=== PATIENT | male | born 1945 | race African-American/Black ===

== ENCOUNTER 2021-10-26 16:35 | Inpatient (IN) | payer MEDICARE, OTHER ==
[2021-10-27] MEDS ORDERED: DEXTROSE 50% IN WATER (25GM) 50 ML SYRINGE IV PRN (13:06)
[2021-10-27] MEDS ORDERED: ONDANSETRON 4 MG ODT TAB PO PRN (16:00)
[2021-10-27] MEDS: INSULIN LISPRO 100 UNIT/ML SUB-Q SCH ×2 (17:24→21:41)
[2021-10-27] MEDS: metFORMIN 500 MG TAB PO SCH (17:43)
[2021-10-27] MEDS: oxyCODONE 5 MG TAB PO PRN (21:41)
[2021-10-27] MEDS: levETIRAcetam 500 MG TAB PO SCH (21:41)
[2021-10-27] MEDS: GABAPENTIN 300 MG CAP PO SCH (21:41)
[2021-10-27] MEDS: DIVALPROEX ER 500 MG TAB PO SCH (21:45)
[2021-10-27] MEDS ORDERED: GABAPENTIN 300 MG CAP PO SCH (22:00)
[2021-10-28 04:31] LABS: Hematocrit 25.5 % (35.5-45.6); Hemoglobin 8.5 gm/dl (11.8-15.2); Mean Corpuscular HGB Conc 33 % (32-34); Mean Corpuscular Volume 88 fl (84-94); Platelet Count 659 K/mm3 (140-440); Red Cell Distribution Width 19.4 % (13.2-15.2)
[2021-10-28 04:52] LABS: Alanine Aminotransferase 7 units/L (7-56); Blood Urea Nitrogen 8 mg/dL (9-20); Calcium 8.4 mg/dL (8.4-10.2); Hemolysis Index 5
[2021-10-28 04:53] LABS: BUN/Creatinine Ratio 16
[2021-10-28 05:20] LABS: Basophils % (Manual) 0 % (0.0-1.8); Platelet Estimate Consistent w Auto; Total Cells Counted 100
[2021-10-28] MEDS: LEVOTHYROXINE 50 MCG TAB PO SCH (05:44)
--- NOTE | 2021-10-28 08:17 | History and Physical Report ---
History of Present Illness Date: 10/28/21 Date of admission: 10/27/21 16:16 Chief Complaint: Fall with bilateral proximal humerus fractures History of present illness: 75-year-old male who was on a cruise and ended up falling in the shower early on. After the cruise he ended up falling again and having seizure activity. Was taken to [facility] and found to have bilateral proximal humerus fractures with posterior dislocation. He was started on AEDs and neurology consult was obtained. He was transferred to [facility] on 10/18 and underwent a right total shoulder arthroplasty and a left ORIF. Patient was discharged from the outside hospital and after a few days of waiting for insurance approval was admitted for acute inpatient rehabilitation. Patient remains on DVT prophylaxis with Lovenox. Per Ortho his right upper extremity m ay be in a simple sling, left upper extremity is in external rotation sling. Nonweightbearing bilaterally and slight range of motion (pendulums) okay for axillary hygiene only. Patient has a follow-up appointment tomorrow with a local orthopedic surgeon. Bandages have been removed per outside hospital according to the patient. After the patient was medically stabilized they were transferred for further rehabilitation. All available medical records have been reviewed. Plan of care was discussed with patient. Past History Past Medical History: cancer (Prostate), diabetes, hypothyroidism Past Surgical History: Other (Prostatectomy and radiation) Social history: , lives with family. denies: smoking, alcohol abuse Family history: no significant family history Medications and Allergies Allergies Allergy/AdvReac Type Severity Reaction Status Date / Time No Known Allergies Allergy Unverified 10/27/21 12:21 Home Medications Medication Instructions Recorded Confirmed Last Taken Type Aspirin [Aspirin BABY CHEW TAB] 81 mg PO DAILY 10/27/21 10/27/21 10/26/[address] [Depakote Dr] 500 mg PO BID 10/27/21 10/27/21 10/27/21 History Docusate Sodium [Colace CAP] 100 mg PO DAILY 10/27/21 10/27/21 10/27/21 History Gabapentin 600 mg PO QHS 10/27/21 10/27/21 10/26/21 History Ibuprofen [Motrin Ib] 600 mg PO DAILY PRN 10/27/21 10/27/21 10/26/21 History Levothyroxine [Synthroid] 50 mcg PO DAILY 10/27/21 10/27/21 10/27/21 History Omeprazole 20 mg PO DAILY 10/27/21 10/27/21 10/27/21 History Zyrtec 10mg tab 10 mg PO DAILY 10/27/21 10/27/21 10/27/21 History levETIRAcetam [Keppra TAB] 1,000 mg PO BID 10/27/21 10/27/21 10/27/21 History metFORMIN [Glucophage] 500 mg PO QHS 10/27/21 10/27/21 10/26/21 History oxyCODONE [roxiCODONE] 5 mg PO Q6HR PRN 10/27/21 10/27/21 10/27/21 History Active Meds: Active Medications Acetaminophen (Acetaminophen 325 Mg Tab) 650 mg PO Q6H PRN PRN Reason: Pain MILD(1-3)/Fever >100.5/GONZALEZ Aspirin (Aspirin Ec 325 Mg Tab) 325 mg PO QDAY CAROLYN Cetirizine HCl (Cetirizine 10 Mg Tab) 10 mg PO QDAY [facility] Dextrose (Dextrose 50% In Water (25gm) 50 Ml Syringe) 50 ml IV Q30MIN PRN; Protocol PRN Reason: Hypoglycemia Divalproex Sodium (Divalproex Er 500 Mg Tab) 500 mg PO BID [facility] Last Admin: 10/27/21 21:45 Dose: 500 mg Docusate Sodium (Docusate Sodium 100 Mg Cap) 100 mg PO DAILY [facility] Enoxaparin Sodium (Enoxaparin 40 Mg/0.4 Ml Inj) 40 mg SUB-Q QDAY [facility] Gabapentin (Gabapentin 300 Mg Cap) 600 mg PO HS [facility] Last Admin: 10/27/21 21:41 Dose: 600 mg Insulin Human Lispro (Insulin Lispro 100 Unit/Ml) 0 unit SUB-Q ACHS [facility]; Protocol Last Admin: 10/27/21 21:41 Dose: Not Given Levetiracetam (Levetiracetam 500 Mg Tab) 1,000 mg PO BID [facility] Last Admin: 10/27/21 21:41 Dose: 1,000 mg Levothyroxine Sodium (Levothyroxine 50 Mcg Tab) 50 mcg PO DAILY@0600 [facility] Last Admin: 10/28/21 05:44 Dose: 50 mcg Metformin HCl (Metformin 500 Mg Tab) 500 mg PO QPM [facility] Last Admin: 10/27/21 17:43 Dose: 500 mg Ondansetron HCl (Ondansetron 4 Mg Odt Tab) 4 mg PO Q8H PRN PRN Reason: Nausea And Vomiting Oxycodone HCl (Oxycodone 5 Mg Tab) 5 mg PO Q6H PRN PRN Reason: Pain, Moderate (4-6) Last Admin: 10/27/21 21:41 Dose: 5 mg Pantoprazole Sodium (Pantoprazole 20 Mg Tab) 20 mg PO QDAC [facility] Polyethylene Glycol (Polyethylene Glycol 3350 17 Gm Powder) 17 gm PO QDAY PRN PRN Reason: Constipation Review of Systems All systems: negative (ROS negative for 10 systems except as noted below with pertinent positives and negatives.) Constitutional: no fever, no chills Ears, nose, mouth and throat: no decreased hearing, no vertigo Cardiovascular: no chest pain, no edema Respiratory: no cough, no shortness of breath Gastrointestinal: no abdominal pain, no nausea, no vomiting, no diarrhea, no constipation Musculoskeletal: shooting arm pain, fractures, no shooting leg pain Integumentary: wounds (Clean dry and intact), no rash Neurological: seizures, no weakness Psychiatric: no memory loss, no disorientation Endocrine: high blood sugars Exam - Exam Narrative exam: MUSCULOSKELETAL SPECIALTY EXAM CONSTITUTIONAL: Well developed, well nourished, appropriately groomed LYMPHATIC: No appreciable abnormalities palpable in neck RESPIRATORY: Clear to auscultation bilaterally, no increased work of breathing CARDIOVASCULAR: Regular Rate/ Rhythm, no swelling, edema or tenderness in BUE or BLE. Pulses palpable in all extremities. All extremities warm. GI: + bowel sounds, soft, NTTP, nondistended. INTEGUMENTARY: Surgical incisions clean dry and intact on bilateral shoulders, bruising noted. Otherwise normal, no lesion, rash, masses or bruising noted in extremities. MUSCULOSKELETAL: BUE and BLE normal without defect, crepitus, subluxation, effusion, arthritic changes or TTP. BUE unable to test fully due to restrictions, manager harbor strength intact able to move wrist and elbows BLE 4+/5 good ROM, with normal tone NEURO: CN 2-12 grossly intact. Sensation intact in all extremities. Reflexes 2+ bilaterally at patella, did not test upper extremity due to surgical site. No clonus at ankles. Gross coordination intact in BUE within limitations of range of motion restrictions. No tremor noted in 4 extremities. POSTURE and GAIT: Sitting posture good. Balance and gait deferred until seen with therapy. PSYCH: Alert, oriented x3, affect appears normal. Insight appears intact. - Constitutional Vitals: Vital Signs - 12hr 10/27/21 10/27/21 10/27/21 21:30 22:34 23:39 Temperature 97.5 F L 97.8 F Pulse Rate 70 67 Respiratory 15 16 Rate Blood Pressure 126/58 131/61 O2 Sat by Pulse 99 99 99 Oximetry 10/28/21 03:22 Temperature 97.4 F L Pulse Rate 66 Respiratory 15 Rate Blood Pressure 139/65 O2 Sat by Pulse 100 Oximetry - Labs CBC & Chem 7: 10/28/21 03:25 10/28/21 03:25 Labs: Laboratory Results - last 72 hr 10/27/21 10/27/21 10/28/21 16:42 21:28 03:25 WBC 6.9 RBC 2.90 L Hgb 8.5 L Hct 25.5 L MCV 88 MCH 29 MCHC 33 RDW 19.4 H Plt Count 659 H [place] % (Auto) Glass Forming Crew Member Add Manual Diff Complete Total Counted 100 Seg Neuts % (Manual) 51.0 Band Neutrophils % 0 Lymphocytes % (Manual) 29.0 Reactive Lymphs % (Man) 0 Monocytes % (Manual) 13.0 H Eosinophils % (Manual) 7.0 H Basophils % (Manual) 0 Metamyelocytes % 0 Myelocytes % 0 Promyelocytes % 0 Blast Cells % 0 Nucleated RBC % Not Reportable Seg Neutrophils # Man 3.5 Band Neutrophils # 0.0 Lymphocytes # (Manual) 2.0 Abs React Lymphs (Man) 0.0 Monocytes # (Manual) 0.9 H Eosinophils # (Manual) 0.5 H Basophils # (Manual) 0.0 Metamyelocytes # 0.0 Myelocytes # 0.0 Promyelocytes # 0.0 Blast Cells # 0.0 WBC Morphology Not Reportable Hypersegmented Neuts Not Reportable Hyposegmented Neuts Not Reportable Hypogranular Neuts Not Reportable Smudge Cells Not Reportable Toxic Granulation Not Reportable Toxic Vacuolation Not Reportable Dohle Bodies Not Reportable Pelger-Huet Anomaly Not Reportable Allison Rods Not Reportable Platelet Estimate Consistent w auto Clumped Platelets Not Reportable Plt Clumps, EDTA Not Reportable Large Platelets Not Reportable Giant Platelets Not Reportable Platelet Satelliting Not Reportable Plt Morphology Comment Not Reportable RBC Morphology Not Reportable Dimorphic RBCs Not Reportable Polychromasia Not Reportable Hypochromasia Not Reportable Poikilocytosis Not Reportable Anisocytosis Not Reportable Microcytosis Not Reportable Macrocytosis Not Reportable Spherocytes Not Reportable Pappenheimer Bodies Not Reportable Sickle Cells Not Reportable Target Cells Not Reportable Tear Drop Cells Not Reportable Ovalocytes Not Reportable Helmet Cells Not Reportable Tolliver-Haines Bodies Not Reportable [place] Rings Not Reportable [place] Cells Not Reportable Bite Cells Not Reportable Crenated Cell Not Reportable Elliptocytes Not Reportable Acanthocytes (Spur) Not Reportable Rouleaux Not Reportable Hemoglobin C Crystals Not Reportable Schistocytes Not Reportable Malaria parasites Not Reportable Andrei Bodies Not Reportable Hem Pathologist Commnt No Sodium Potassium Chloride Carbon Dioxide Anion Gap BUN Creatinine Estimated GFR BUN/Creatinine Ratio Glucose POC Glucose 139 H 149 H Calcium Total Bilirubin AST ALT Alkaline Phosphatase Total Protein Albumin Albumin/Globulin Ratio 10/28/21 10/28/21 03:25 07:58 WBC RBC Hgb Hct MCV MCH MCHC RDW Plt Count [place] % (Auto) Add Manual Diff Total Counted Seg Neuts % (Manual) Band Neutrophils % Lymphocytes % (Manual) Reactive Lymphs % (Man) Monocytes % (Manual) Eosinophils % (Manual) Basophils % (Manual) Metamyelocytes % Myelocytes % Promyelocytes % Blast Cells % Nucleated RBC % Seg Neutrophils # Man Band Neutrophils # Lymphocytes # (Manual) Abs React Lymphs (Man) Monocytes # (Manual) Eosinophils # (Manual) Basophils # (Manual) Metamyelocytes # Myelocytes # Promyelocytes # Blast Cells # WBC Morphology Hypersegmented Neuts Hyposegmented Neuts Hypogranular Neuts Smudge Cells Toxic Granulation Toxic Vacuolation Dohle Bodies Pelger-Huet Anomaly Allison Rods Platelet Estimate Clumped Platelets Plt Clumps, EDTA Large Platelets Giant Platelets Platelet Satelliting Plt Morphology Comment RBC Morphology Dimorphic RBCs Polychromasia Hypochromasia Poikilocytosis Anisocytosis Microcytosis Macrocytosis Spherocytes Pappenheimer Bodies Sickle Cells Target Cells Tear Drop Cells Ovalocytes Helmet Cells Tolliver-Haines Bodies [place] Rings Mel[place] Cells Bite Cells Crenated Cell Elliptocytes Acanthocytes (Spur) Rouleaux Hemoglobin C Crystals Schistocytes Malaria parasites Andrei Bodies Hem Pathologist Commnt Sodium 142 Potassium 4.5 Chloride 108.2 H Carbon Dioxide 26 Anion Gap 12 BUN 8 L Creatinine 0.5 L Estimated GFR > 60 BUN/Creatinine Ratio 16 Glucose 102 H POC Glucose 81 Calcium 8.4 Total Bilirubin 0.30 AST 13 ALT 7 Alkaline Phosphatase 108 Total Protein 5.5 L Albumin 3.0 L Albumin/Globulin Ratio 1.2 Assessment and Plan Assessment and plan: Patient was assessed and evaluated for Acute Inpatient Rehab Unit. Due to the patients above-mentioned medical complexity, along with decreased functional mobility and self care, this patient continues to require and be appropriate for a comprehensive, multidisciplinary [id number] rehabilitation program. These needs cannot be met in an outpatient or other less intensive setting. The patient would continue to benefit from skilled therapy intervention for at least 3 hours per day, five days a week, with techniques specific to the needs of the patient to improve function, activities of daily living, and reintegration into the community. The patient continues to require: -- OT to improve ROM, self-care, and learn use of adaptive equipment -- PT to improve strength and balance, functional transfers, and ambulation with energy conservation techniques to improve functional mobility -- 24 hour RN to ensure and prevent skin breakdown, promote progressive independence while ensuring safety, ensure education regarding medications, and incorporation of the rehabilitation at the bedside -- 24 hour Commercial Loan Processor to coordinate this interdisciplinary program, and to manage/prevent complications as a result of the patients medical comorbidities. -Plan of care by day 4 -Weekly team conferences With such a program, there is a reasonable certainty that the goals individualized for this patient can be achieved within the specified length of stay. Bilateral proximal humerus fractures: Continue nonweightbearing, no range of motion at shoulders. Follow-up with surgeon. External rotation sling for left upper extremity, right upper extremity simple sling. DVT prophylaxis. Seizures: Continue Depakote and Keppra. Seizure precautions ordered. Patient will need to follow-up with neurology after discharge for further monitoring and adjustment of medication regimen. No driving until cleared by neurology. Diabetes: Continue metformin. Patient very well controlled at home. Will cover with sliding scale insulin. Hypothyroidism: Continue levothyroxine. ADL dysfunction: OT will work on improving ability to perform ADLs (including assistive devices) to increase independence and decrease caregiver burden and improve functional transfers and mobility training. Difficulty walking: PT will work on gait training and proper use of assistive devices and advance as appropriate to use of stairs and outside ambulation on uneven surfaces. Unsteadiness on feet: PT will work on improving static and dynamic sitting and standing balance as well as proper use of assistive devices to decrease risk of falls. Abnormality of gait: PT will work to improve safety and efficiency of gait through neuromotor training and gait training along with instruction on proper use of assistive devices. Muscle weakness: PT & OT will work on strengthening exercises to improve functional strength including mixture of closed and open kinetic chain exercises. Debility: PT & OT will work on improving overall functional status to improve participation with ADLs, mobility and social involvement. Fatigue: PT & OT will work on improving endurance through aerobic exercises and therapeutic activity while monitoring patients tolerance for activity and vital signs as needed. DVT ppx: Lovenox Pain: Continue physical modalities in therapy and pain medications as needed to achieve functional pain control. Sleep: Monitor and address as needed. Bowel: Monitor and address as needed. Appetite: Monitor and address as needed. Discharge planning: Pending therapy progress and care plan meeting. Will continue discussion with therapy team, SW, patient and family. Restrictions/ Precautions: Falls, seizure WB status: FWB Functional Hx: ADLs: Independent Cognition: Independent Mobility: No AD Barriers to Discharge: Decreased mobility and ability to perform self care, balance deficits, weakness Estimated Length of Stay: 710 days Discharge Destination: Home with family POST ADMISSION PHYSICIAN EVALUATION I have examined the patient and find that functional status, medical condition and appropriateness for IRF admission are essentially unchanged from those described in the preadmission screening. Will monitor for worsening wound d ehiscence, wound infection, loosening of hardware, DVT/PE, bowel and bladder complications and complications due to seizures, diabetes and electrolyte abnormalities. Will attempt to avoid occurrence of these issues or treat them if they present themselves.
[2021-10-28] MEDS: INSULIN LISPRO 100 UNIT/ML SUB-Q SCH ×4 (09:10→22:06)
[2021-10-28] MEDS: levETIRAcetam 500 MG TAB PO SCH ×2 (09:11→21:56)
[2021-10-28] MEDS: ASPIRIN EC 325 MG TAB PO SCH (09:11)
[2021-10-28] MEDS: ENOXAPARIN 40 MG/0.4 ML INJ SUB-Q SCH (09:11)
[2021-10-28] MEDS: DOCUSATE SODIUM 100 MG CAP PO SCH (09:11)
[2021-10-28] MEDS: CETIRIZINE 10 MG TAB PO SCH (09:11)
[2021-10-28] MEDS: PANTOPRAZOLE 20 MG TAB PO SCH (09:11)
[2021-10-28] MEDS: oxyCODONE 5 MG TAB PO PRN ×2 (12:57→22:03)
[2021-10-28] MEDS: IBUPROFEN 600 MG TAB PO PRN (15:23)
[2021-10-28] MEDS: DIVALPROEX ER 500 MG TAB PO SCH ×2 (15:23→21:57)
[2021-10-28] MEDS: metFORMIN 500 MG TAB PO SCH (17:43)
[2021-10-28] MEDS: GABAPENTIN 300 MG CAP PO SCH (21:57)
[2021-10-29] MEDS: IBUPROFEN 600 MG TAB PO PRN ×2 (02:16→10:36)
[2021-10-29] MEDS: LEVOTHYROXINE 50 MCG TAB PO SCH (05:29)
--- NOTE | 2021-10-29 07:47 | Progress Note ---
Subjective Date of service: 10/29/21 Principal diagnosis: Fall with bilateral proximal humerus fractures Interval history: 75-year-old male who was on a cruise and ended up falling in the shower early on. After the cruise he ended up falling again and having seizure activity. Was taken to [facility] and found to have bilateral proximal humerus fractures with posterior dislocation. He was started on AEDs and neurology consult was obtained. He was transferred to [facility] on 10/18 and underwent a right total shoulder arthroplasty and a left ORIF. Patient was discharged from the outside hospital and after a few days of waiting for insurance approval was admitted for acute inpatient rehabilitation. Patient remains on DVT prophylaxis with Lovenox. Per Ortho his right upper extremity may be in a simple sling, left upper extremity is in external rotation sling. Nonweightbearing bilaterally and slight range of motion (pendulums) okay for axillary hygiene only. Patient has a follow-up appointment tomorrow with a local orthopedic surgeon. Bandages have been removed per outside hospital according to the patient. After the patient was medically stabilized they were transferred for further rehabilitation. All available medical records have been reviewed. Plan of care was discussed with patient. Interval History: Patient is participating in therapy and making reasonable progress. Taking rest breaks as needed. -BM. Denies palpitations, dyspnea, cough, N/V, weakness. Bilateral proximal humerus fractures: Status post left ORIF and right TSA. José Miguel belkis was scheduled to follow-up with a new orthopedic surgeon since the surgery was performed and [place]. However there are questions concerning approval of insurance for allowing the patient to go with family to an outside/outpatient appointment while the patient is inpatient in the IRU. Sunita y is working on rescheduling appointment. Meanwhile we will order bilateral shoulder x-rays to evaluate the injuries. Patient is not having any acute issues currently. Patient is also requested Ortho consult, did inform him that we do not have a dedicated shoulder specialist in house but will try to arrange for inpatient consult while he is here until he is able to follow-up with his outpatient shoulder specialist. Remains on DVT prophylaxis while in house, weightbearing and range of motion restrictions, and sling. Seizures: Continue medications, no seizure activity appreciated or reported. Continue seizure precaution Diabetes: Very well controlled. Continue metformin. We will stop fingerstick glucose checks and sliding scale as patient is well controlled on current regimen. Can perform glucose checks as needed if there are any acute changes Constipation: Medications available both scheduled and as needed. Continue to monitor and adjust as necessary ADL mobility deficits: Patient is working with therapy and making progress. Continued to provide therapeutic interventions to give the patient skills and comfort with performing ADLs and mobility in a safe manner without putting upper extremities at risk. All records, vitals, labs and medications were reviewed. No other issues per patient, nursing or therapy. Objective - Exam Narrative Exam: MUSCULOSKELETAL SPECIALTY EXAM CONSTITUTIONAL: Well developed, well nourished, appropriately groomed RESPIRATORY: Clear to auscultation bilaterally, no increased work of breathing CARDIOVASCULAR: Regular Rate/ Rhythm, no swelling, edema or tenderness in BUE or BLE. Pulses palpable in all extremities. All extremities warm. GI: + bowel sounds, soft, NTTP, nondistended. INTEGUMENTARY: Surgical incisions clean dry and intact on bilateral shoulders, bruising noted. Otherwise normal, no lesion, rash, masses or bruising noted in extremities. MUSCULOSKELETAL: BUE and BLE normal without defect, crepitus, subluxation, effusion, arthritic changes or TTP (appropriate TTP to bilateral shoulders). BUE unable to test fully due to restrictions, machinery engineer strength intact able to move wrist and elbows BLE 4+/5 good ROM, with normal tone NEURO: CN 2-12 grossly intact. Sensation intact in all extremities. No tremor noted in 4 extremities. POSTURE and GAIT: Sitting posture good. Balance and gait deferred until seen with therapy. PSYCH: Alert, oriented x3, affect appears normal. Insight appears intact. - Constitutional Vitals: Vital Signs - 12hr 10/28/21 10/28/21 10/28/21 20:00 20:02 22:03 Temperature 97.7 F Pulse Rate 73 Respiratory 16 17 Rate Blood Pressure 166/71 Blood Pressure [Right] O2 Sat by Pulse 97 99 Oximetry 10/28/21 10/29/21 23:05 02:16 Temperature Pulse Rate Respiratory 17 Rate Blood Pressure Blood Pressure 158/78 [Right] O2 Sat by Pulse Oximetry - Allied health notes Allied health notes reviewed: nursing, PT, OT FIMS assessment as documented by PT/OT/ST: Locomotion- walk/wheelchair Ambulation Distance 55 - Labs CBC & Chem 7: 10/28/21 03:25 10/28/21 03:25 Labs: Laboratory Results - last 72 hr 10/27/21 10/27/21 10/28/21 16:42 21:28 03:25 WBC 6.9 RBC 2.90 L Hgb 8.5 L Hct 25.5 L MCV 88 MCH 29 MCHC 33 RDW 19.4 H Plt Count 659 H Bartholomew % (Auto) Bakery Associate Add Manual Diff Complete Total Counted 100 Seg Neuts % (Manual) 51.0 Band Neutrophils % 0 Lymphocytes % (Manual) 29.0 Reactive Lymphs % (Man) 0 Monocytes % (Manual) 13.0 H Eosinophils % (Manual) 7.0 H Basophils % (Manual) 0 Metamyelocytes % 0 Myelocytes % 0 Promyelocytes % 0 Blast Cells % 0 Nucleated RBC % Not Reportable Seg Neutrophils # Man 3.5 Band Neutrophils # 0.0 Lymphocytes # (Manual) 2.0 Abs React Lymphs (Man) 0.0 Monocytes # (Manual) 0.9 H Eosinophils # (Manual) 0.5 H Basophils # (Manual) 0.0 Metamyelocytes # 0.0 Myelocytes # 0.0 Promyelocytes # 0.0 Blast Cells # 0.0 WBC Morphology Not Reportable Hypersegmented Neuts Not Reportable Hyposegmented Neuts Not Reportable Hypogranular Neuts Not Reportable Smudge Cells Not Reportable Toxic Granulation Not Reportable Toxic Vacuolation Not Reportable Dohle Bodies Not Reportable Pelger-Huet Anomaly Not Reportable Allison Rods Not Reportable Platelet Estimate Consistent w auto Clumped Platelets Not Reportable Plt Clumps, EDTA Not Reportable Large Platelets Not Reportable Giant Platelets Not Reportable Platelet Satelliting Not Reportable Plt Morphology Comment Not Reportable RBC Morphology Not Reportable Dimorphic RBCs Not Reportable Polychromasia Not Reportable Hypochromasia Not Reportable Poikilocytosis Not Reportable Anisocytosis Not Reportable Microcytosis Not Reportable Macrocytosis Not Reportable Spherocytes Not Reportable Pappenheimer Bodies Not Reportable Sickle Cells Not Reportable Target Cells Not Reportable Tear Drop Cells Not Reportable Ovalocytes Not Reportable Helmet Cells Not Reportable Tolliver-Delevan Bodies Not Reportable [place] Rings Not Reportable Meliton Cells Not Reportable Bite Cells Not Reportable Crenated Cell Not Reportable Elliptocytes Not Reportable Acanthocytes (Spur) Not Reportable Rouleaux Not Reportable Hemoglobin C Crystals Not Reportable Schistocytes Not Reportable Malaria parasites Not Reportable Andrei Bodies Not Reportable Hem Pathologist Commnt No Sodium Potassium Chloride Carbon Dioxide Anion Gap BUN Creatinine Estimated GFR BUN/Creatinine Ratio Glucose POC Glucose 139 H 149 H Calcium Total Bilirubin AST ALT Alkaline Phosphatase Total Protein Albumin Albumin/Globulin Ratio 10/28/21 10/28/21 10/28/21 03:25 07:58 12:43 WBC RBC Hgb Hct MCV MCH MCHC RDW Plt Count Bartholomew % (Auto) Add Manual Diff Total Counted Seg Neuts % (Manual) Band Neutrophils % Lymphocytes % (Manual) Reactive Lymphs % (Man) Monocytes % (Manual) Eosinophils % (Manual) Basophils % (Manual) Metamyelocytes % Myelocytes % Promyelocytes % Blast Cells % Nucleated RBC % Seg Neutrophils # Man Band Neutrophils # Lymphocytes # (Manual) Abs React Lymphs (Man) Monocytes # (Manual) Eosinophils # (Manual) Basophils # (Manual) Metamyelocytes # Myelocytes # Promyelocytes # Blast Cells # WBC Morphology Hypersegmented Neuts Hyposegmented Neuts Hypogranular Neuts Smudge Cells Toxic Granulation Toxic Vacuolation Dohle Bodies Pelger-Huet Anomaly Allison Rods Platelet Estimate Clumped Platelets Plt Clumps, EDTA Large Platelets Giant Platelets Platelet Satelliting Plt Morphology Comment RBC Morphology Dimorphic RBCs Polychromasia Hypochromasia Poikilocytosis Anisocytosis Microcytosis Macrocytosis Spherocytes Pappenheimer Bodies Sickle Cells Target Cells Tear Drop Cells Ovalocytes Helmet Cells Tolliver-Delevan Bodies [place] Rings Pinon Cells Bite Cells Crenated Cell Elliptocytes Acanthocytes (Spur) Rouleaux Hemoglobin C Crystals Schistocytes Malaria parasites Andrei Bodies Hem Pathologist Commnt Sodium 142 Potassium 4.5 Chloride 108.2 H Carbon Dioxide 26 Anion Gap 12 BUN 8 L Creatinine 0.5 L Estimated GFR > 60 BUN/Creatinine Ratio 16 Glucose 102 H POC Glucose 81 113 H Calcium 8.4 Total Bilirubin 0.30 AST 13 ALT 7 Alkaline Phosphatase 108 Total Protein 5.5 L Albumin 3.0 L Albumin/Globulin Ratio 1.2 10/28/21 10/28/21 17:29 21:05 WBC RBC Hgb Hct MCV MCH MCHC RDW Plt Count Bartholomew % (Auto) Add Manual Diff Total Counted Seg Neuts % (Manual) Band Neutrophils % Lymphocytes % (Manual) Reactive Lymphs % (Man) Monocytes % (Manual) Eosinophils % (Manual) Basophils % (Manual) Metamyelocytes % Myelocytes % Promyelocytes % Blast Cells % Nucleated RBC % Seg Neutrophils # Man Band Neutrophils # Lymphocytes # (Manual) Abs React Lymphs (Man) Monocytes # (Manual) Eosinophils # (Manual) Basophils # (Manual) Metamyelocytes # Myelocytes # Promyelocytes # Blast Cells # WBC Morphology Hypersegmented Neuts Hyposegmented Neuts Hypogranular Neuts Smudge Cells Toxic Granulation Toxic Vacuolation Dohle Bodies Pelger-Huet Anomaly Allison Rods Platelet Estimate Clumped Platelets Plt Clumps, EDTA Large Platelets Giant Platelets Platelet Satelliting Plt Morphology Comment RBC Morphology Dimorphic RBCs Polychromasia Hypochromasia Poikilocytosis Anisocytosis Microcytosis Macrocytosis Spherocytes Pappenheimer Bodies Sickle Cells Target Cells Tear Drop Cells Ovalocytes Helmet Cells Tolliver-Delevan Bodies [place] Rings [place] Cells Bite Cells Crenated Cell Elliptocytes Acanthocytes (Spur) Rouleaux Hemoglobin C Crystals Schistocytes Malaria parasites Andrei Bodies Hem Pathologist Commnt Sodium Potassium Chloride Carbon Dioxide Anion Gap BUN Creatinine Estimated GFR BUN/Creatinine Ratio Glucose POC Glucose 115 H 90 Calcium Total Bilirubin AST ALT Alkaline Phosphatase Total Protein Albumin Albumin/Globulin Ratio Assessment and Plan Bilateral proximal humerus fractures: Continue nonweightbearing, no range of motion at shoulders. Follow-up with surgeon. External rotation sling for left upper extremity, right upper extremity simple sling. DVT prophylaxis. Check b/l shoulder XR today. Will see if we can arrange for ortho consult. Seizures: Continue Depakote and Keppra. Seizure precautions ordered. Patient will need to follow-up with neurology after discharge for further monitoring and adjustment of medication regimen. No driving until cleared by neurology. Diabetes: Continue metformin. Patient very well controlled at home. Have discontinued daily fingerstick glucose checks and sliding scale. May utilize if needed but patient is well controlled and only checks glucose once a week at home Hypothyroidism: Continue levothyroxine. ADL dysfunction: OT will work on improving ability to perform ADLs (including assistive devices) to increase independence and decrease caregiver burden and improve functional transfers and mobility training. Difficulty walking: PT will work on gait training and proper use of assistive devices and advance as appropriate to use of stairs and outside ambulation on uneven surfaces. Unsteadiness on feet: PT will work on improving static and dynamic sitting and standing balance as well as proper use of assistive devices to decrease risk of falls. Abnormality of gait: PT will work to improve safety and efficiency of gait through neuromotor training and gait training along with instruction on proper use of assistive devices. Muscle weakness: PT & OT will work on strengthening exercises to improve fun ctional strength including mixture of closed and open kinetic chain exercises. Debility: PT & OT will work on improving overall functional status to improve participation with ADLs, mobility and social involvement. Fatigue: PT & OT will work on improving endurance through aerobic exercises and therapeutic activity while monitoring patients tolerance for activity and vital signs as needed. DVT ppx: Lovenox Pain: Continue physical modalities in therapy and pain medications as needed to achieve functional pain control. Sleep: Monitor and address as needed. Bowel: Monitor and address as needed. Appetite: Monitor and address as needed. Discharge planning: Pending therapy progress and care plan meeting. Will continue discussion with therapy team, SW, patient and family. Restrictions/ Precautions: Falls, seizure WB status: FWB Functional Hx: ADLs: Independent Cognition: Independent Mobility: No AD Barriers to Discharge: Decreased mobility and ability to perform self care, monica nce deficits, weakness Estimated Length of Stay: 710 days Discharge Destination: Home with family
[2021-10-29] MEDS: INSULIN LISPRO 100 UNIT/ML SUB-Q SCH (08:42)
[2021-10-29] MEDS ORDERED: amLODIPine 5 MG TAB PO SCH (10:00)
--- NOTE | 2021-10-29 11:18 | XRay Report ---
Bilateral shoulders-6 total views INDICATION: Surgical follow up. COMPARISON: None available. IMPRESSION: Reversed total right shoulder arthroplasty with normal alignment. Mild cortical irregula rity along the lateral aspect of the residual proximal humerus with some osteoid matrix suggesting a subacute at earliest fracture. Findings could be related to surgery depending on the timing or could be seen with loosening/fracture. Left humeral fixation also noted is intact without complication and normal alignment. Signer Name: Tariq Rand MD Signed: 10/29/2021 11:14 AM Workstation Name: [id number]
[2021-10-29] MEDS: levETIRAcetam 500 MG TAB PO SCH ×2 (11:24→21:32)
[2021-10-29] MEDS: ASPIRIN EC 325 MG TAB PO SCH (11:24)
[2021-10-29] MEDS: CETIRIZINE 10 MG TAB PO SCH (11:25)
[2021-10-29] MEDS: ENOXAPARIN 40 MG/0.4 ML INJ SUB-Q SCH (11:25)
[2021-10-29] MEDS: PANTOPRAZOLE 20 MG TAB PO SCH (11:25)
[2021-10-29] MEDS: DOCUSATE SODIUM 100 MG CAP PO SCH (11:25)
[2021-10-29] MEDS: oxyCODONE 5 MG TAB PO PRN ×2 (11:39→18:19)
[2021-10-29] MEDS: DIVALPROEX ER 500 MG TAB PO SCH ×2 (11:40→21:32)
--- NOTE | 2021-10-29 11:57 | Consultation ---
History of Present Illness - [facility] Consult date: 10/29/21 Requesting physician: ARGELIA MCCABE III Consult reason: fracture History of present illness: 75-year-old male consulted for recent bilateral shoulder surgery done at outside hospital. Patient was in [place] when he fell and injured both of his shoulders. Work up revealed patient suffered new onset seizures. Patient was taken to local hospital and diagnosed with bilateral fracture dislocations of his shoulders. Patient underwent reverse total shoulder arthroplasty on the right and left proximal humerus ORIF on October 18, 2021 in [place]. Patient was subsequently discharged and admitted to inpatient rehab at [facility]. Patient states his pain is currently controlled. Patient denies any paresthesias in his bilateral UE. Denies any fevers or chills. Patient is RHD. Patient currently is on lovenox for DVT ppx. Past History Past Medical History: cancer (Prostate), diabetes, hypothyroidism Past Surgical History: Other (Prostatectomy and radiation, right reverse total shoulder arthroplasty, left proximal humerus ORIF) Social history: , lives with family. denies: smoking, alcohol abuse Family history: no significant family history Medications and Allergies Allergies Allergy/AdvReac Type Severity Reaction Status Date / Time No Known Allergies Allergy Unverified 10/27/21 12:21 Home Medications Medication Instructions Recorded Confirmed Last Taken Type Aspirin [Aspirin BABY CHEW TAB] 81 mg PO DAILY 10/27/21 10/27/21 10/26/[address] [Depakote Dr] 500 mg PO BID 10/27/21 10/27/21 10/27/21 History Docusate Sodium [Colace CAP] 100 mg PO DAILY 10/27/21 10/27/21 10/27/21 History Gabapentin 600 mg PO QHS 10/27/21 10/27/21 10/26/21 History Ibuprofen [Motrin Ib] 600 mg PO DAILY PRN 10/27/21 10/27/21 10/26/21 History Levothyroxine [Synthroid] 50 mcg PO DAILY 10/27/21 10/27/21 10/27/21 History Omeprazole 20 mg PO DAILY 10/27/21 10/27/21 10/27/21 History Zyrtec 10mg tab 10 mg PO DAILY 10/27/21 10/27/21 10/27/21 History levETIRAcetam [Keppra TAB] 1,000 mg PO BID 10/27/21 10/27/21 10/27/21 History metFORMIN [Glucophage] 500 mg PO QHS 10/27/21 10/27/21 10/26/21 History oxyCODONE [roxiCODONE] 5 mg PO Q6HR PRN 10/27/21 10/27/21 10/27/21 History Active Meds: Active Medications Acetaminophen (Acetaminophen 325 Mg Tab) 650 mg PO Q6H PRN PRN Reason: Pain MILD(1-3)/Fever >100.5/GONZALEZ Amlodipine Besylate (Amlodipine 5 Mg Tab) 5 mg PO [facility]DAY [facility] Last Admin: 10/29/21 11:40 Dose: 5 mg Aspirin (Aspirin Ec 325 Mg Tab) 325 mg PO QDAY [facility] Last Admin: 10/29/21 11:24 Dose: 325 mg Cetirizine HCl (Cetirizine 10 Mg Tab) 10 mg PO QDAY [facility] Last Admin: 10/29/21 11:25 Dose: 10 mg Dextrose (Dextrose 50% In Water (25gm) 50 Ml Syringe) 50 ml IV Q30MIN PRN; Protocol PRN Reason: Hypoglycemia Divalproex Sodium (Divalproex Er 500 Mg Tab) 500 mg PO BID [facility] Last Admin: 10/29/21 11:40 Dose: 500 mg Docusate Sodium (Docusate Sodium 100 Mg Cap) 100 mg PO DAILY [facility] Last Admin: 10/29/21 11:25 Dose: 100 mg Enoxaparin Sodium (Enoxaparin 40 Mg/0.4 Ml Inj) 40 mg SUB-Q QDAY [facility] Last Admin: 10/29/21 11:25 Dose: 40 mg Gabapentin (Gabapentin 300 Mg Cap) 600 mg PO [facility] Last Admin: 10/28/21 21:57 Dose: 600 mg Ibuprofen (Ibuprofen 600 Mg Tab) 600 mg PO Q8H PRN PRN Reason: Pain, Mild (1-3) Last Admin: 10/29/21 10:36 Dose: 600 mg Levetiracetam (Levetiracetam 500 Mg Tab) 1,000 mg PO BID [facility] Last Admin: 10/29/21 11:24 Dose: 1,000 mg Levothyroxine Sodium (Levothyroxine 50 Mcg Tab) 50 mcg PO DAILY@0600 [facility] Last Admin: 10/29/21 05:29 Dose: 50 mcg Metformin HCl (Metformin 500 Mg Tab) 500 mg PO QPM [facility] Last Admin: 10/28/21 17:43 Dose: 500 mg Ondansetron HCl (Ondansetron 4 Mg Odt Tab) 4 mg PO Q8H PRN PRN Reason: Nausea And Vomiting Oxycodone HCl (Oxycodone 5 Mg Tab) 5 mg PO Q6H PRN PRN Reason: Pain, Moderate (4-6) Last Admin: 10/28/21 22:03 Dose: 5 mg Pantoprazole Sodium (Pantoprazole 20 Mg Tab) 20 mg PO QDAC [facility] Last Admin: 10/29/21 11:25 Dose: 20 mg Polyethylene Glycol (Polyethylene Glycol 3350 17 Gm Powder) 17 gm PO QDAY PRN PRN Reason: Constipation Physical Examination - Physical exam Narrative exam: LUE: Incision is C/D/I. No erythema or drainage noted. Incision is healing well. Incision is covered with prineo dressing. AIN/PIN/Ulnar nerve motor intact. C6-C8 SILT. (+) Radial Pulse RUE: Incision is C/D/I. No erythema or drainage noted. Incision is healing well. Incision is covered with prineo dressing. AIN/PIN/Ulnar nerve motor intact. C6-C8 SILT. (+) Radial Pulse Imaging: X-rays of the right shoulder done on 10/29/21 demonstrate reverse total shoulder arthroplasty. Implants are in acceptable positioning. Fracture line from previous fracture visible on lateral aspect under the base plate. No other fractures see. No dislocation seen. X-rays of the left shoulder done on 10/29/21 demonstrate ORIF of left proximal humerus fracture. Implants are in acceptable positioning. Screws do not appear proud. No other fractures seen. No dislocation seen. Eyes: PERRL ENT: Positive: clear oral mucosa Respiratory effort: normal Respiratory: bilateral: CTA Rhythm: regular Heart Sounds: Positive: S1 & S2 General gastrointestinal: Positive: soft, non-tender, non-distended, normal bowel sounds Integumentary: clear, warm, dry Neurologic: Positive: moves all extremities, gait normal. Negative: focal deficits - Shoulder left Appearance: normal Tenderness with palpation: none Pain: no pain Full ROM: yes ROM: abduction: normal ROM: forward flexion: normal ROM: extension: normal ROM: adduction: normal ROM: internal rotation: normal ROM: external rotation: normal Strength: abduction: 5/5 Strength: forward flexion: 5/5 Strength: extension: 5/5 Strength: adduction: 5/5 Strength: internal rotation: 5/5 Strength: external rotation: 5/5 - Cervical Spine Neck pain: none Tenderness with palpation: none Full ROM: yes ROM: flexion: normal ROM: extension: normal ROM: rotation right: normal ROM: rotation left: normal ROM: lateral flexion right: normal ROM: lateral flexion left: normal - Lumbar Spine Back pain: none Tenderness with palpation: none Appearance: normal Full ROM: yes ROM: flexion: normal ROM: extension: normal ROM: rotation right: normal ROM: rotation left: normal ROM: lateral flexion right: normal ROM: lateral flexion left: normal Assessment and Plan 75 year old male consulted for bilateral shoulders -and recent bilateral shoulder surgery done at outside hospital. Status post right reverse total shoulder arthroplasty done on October 18, 2021. Status post left proximal humerus ORIF done on October 18, 2021. -Discussion with patient and family about his clinical exam and imaging results. On physical exam he has no signs of infection. X-rays show that both shoulders show normal postoperative changes after his recent surgery. Discussion had about his postoperative recovery course from his recent surgeries. Explained the typical recovery timeline and course after reverse total shoulder arthroplasty and proximal humerus ORIF. I gave the finally detailed post-op PT/OT program for reverse total shoulder arthroplasty to review and share with their PT/OT. Discussed home PT vs outpatient PT after discharge. -Continue physical therapy and Occupational Therapy -Left upper extremity is nonweightbearing. Sling for comfort. Begin elbow, w rist and hand active range of motion. Begin pendulum exercises of the left shoulder. -Right upper extremity is nonweightbearing. Sling on at all times except for when doiong therapy. Begin elbow, wrist and hand active range of motion. See below for further RUE precautions. - Continue DVT prophylaxis - Continue current pain control regimen - Family anticipates possible discharge to home next week. If patient is discharged next week he can follow up as an outpatient in the office otherwise if he is still in inpatient rehab unit I can see him on the floor. Right shoulder precautions: Avoidance of shoulder extension past neutral and the combination of shoulder adduction and internal rotation should be avoided for 12 weeks postoperatively to reduce risk of dislocation. As such, tucking in a shirt or performing bathroom / persona hygiene with the operative arm is an especially dangerous activity particularly in the immediate yamilet-operative phase. No shoulder motion behind back. (NO combined shoulder adduction, internal rotation, and extension.) No glenohumeral (GH) extension beyond neutral. Sling is worn for 3-4 weeks postoperatively and only removed for exercise and bathing once able. While lying supine, the distal humerus / elbow should be supported by a pillow or towel roll to avoid shoulder extension. Patients should be advised to always be able to visualize their elbow while lying supine. No shoulder AROM. No lifting of objects with operative extremity. No supporting of body weight with involved extremity. Keep incision clean and dry (no soaking/wetting for 2 weeks); No whirlpool, Jacuzzi, pool, ocean/eastman wading for 6 weeks.
[2021-10-29 14:27] LABS: Hematocrit 29.4 % (35.5-45.6); Hemoglobin 9.8 gm/dl (11.8-15.2); Mean Corpuscular HGB Conc 33 % (32-34); Mean Corpuscular Volume 91 fl (84-94); Platelet Count 674 K/mm3 (140-440); Red Blood Count 3.23 M/mm3 (3.65-5.03)
[2021-10-29 14:30] LABS: Red Cell Distribution Width 20.5 % (13.2-15.2)
[2021-10-29] MEDS: metFORMIN 500 MG TAB PO SCH (18:19)
[2021-10-29] MEDS: GABAPENTIN 300 MG CAP PO SCH (21:32)
[2021-10-29] MEDS: amLODIPine 5 MG TAB PO SCH (22:14)
[2021-10-30] MEDS: IBUPROFEN 200 MG TAB PO PRN ×2 (02:51→21:03)
[2021-10-30] MEDS: LEVOTHYROXINE 50 MCG TAB PO SCH (06:05)
[2021-10-30] MEDS ORDERED: hydrALAZINE 20 MG/1 ML INJ IV PRN (08:48)
--- NOTE | 2021-10-30 09:32 | Progress Note ---
Subjective Date of service: 10/30/21 Principal diagnosis: Fall with bilateral proximal humerus fractures Interval history: 75-year-old male who was on a cruise and ended up falling in the shower early on. After the cruise he ended up falling again and having seizure activity. Was taken to [facility] and found to have bilateral proximal humerus fractures with posterior dislocation. He was started on AEDs and neurology consult was obtained. He was transferred to [facility] on 10/18 and underwent a right total shoulder arthroplasty and a left ORIF. Patient was discharged from the outside hospital and after a few days of waiting for insurance approval was admitted for acute inpatient rehabilitation. Patient remains on DVT prophylaxis with Lovenox. Per Ortho his right upper extremity may be in a simple sling, left upper extremity is in external rotation sling. Nonweightbearing bilaterally and slight range of motion (pendulums) okay for axillary hygiene only. Patient has a follow-up appointment tomorrow with a local orthopedic surgeon. Bandages have been removed per outside hospital according to the patient. After the patient was medically stabilized they were transferred for further rehabilitation. All available medical records have been reviewed. Plan of care was discussed with patient. Interval History: Patient is participating in therapy and making reasonable progress. Taking rest breaks as needed. -BM, patient requesting MiraLAX and suppository with possible enema. Patient does have issues with constipation at home. Denies palpitations, dyspnea, cough, N/V, weakness. Bilateral proximal humerus fractures: Status post left ORIF and right TSA. Was able to consult in-house orthopedics, appreciate Dr. Carrero's assistance. Discus sed his findings yesterday, no issues with prior surgeries noted. Patient is not having any acute issues currently. Remains on DVT prophylaxis while in house, weightbearing and range of motion restrictions, and sling. X-rays reviewed, postop changes noted without any apparent issues in hardware. Seizures: Continue medications, no seizure activity appreciated or reported. Continue seizure precaution Diabetes: Very well controlled. Continue metformin. We will stop fingerstick glucose checks and sliding scale as patient is well controlled on current regimen. Can perform glucose checks as needed if there are any acute changes Anemia: Last value was 8.8 at outside hospital prior to discharge. On his initial labs with us he was 8.5 and normocytic. Cardiology ordered a repeat CBC yesterday which resulted later in the day but does show that he is improved to 9.8. I ordered an anemia work-up but the labs are still pending. Discussed with the patient that we may need to start him on medications depending on the results of those labs. Will monitor throughout the rest day and start medications if needed. Thrombocytosis: In line with values at outside hospital. Likely reactive, monitor for normalization. Patient remains on aspirin and Lovenox Hypertension: New diagnosis, in speaking with the son yesterday he stated that the patient has had issues with borderline hypertension and he has been watching for the necessity to start treatment. Patient was started on amlodipine 5 mg at hospital in [place] however this tended to bottom him out. Son (who is a reeling and tubing machine operator) is requesting to start the amlodipine at 2.5 mg and monitor for need to increase. Blood pressures have been variable and were more elevated overnight. As I spoke with the son yesterday my concern is that the blood pressures are not being checked in the same position on the leg. Patient confirms this and states that they are checking in multiple areas. I did speak with nursing yesterday and asked them to ensure that everyone was checking at the same area. Discussed issues with orthostatic hypotension and patient's propensity for falling. He is well aware of and practices the safety precaution of momentary pauses between transitions. We will continue to monitor and adjust medication as needed. Appreciate cardiology assistance Constipation: Medications available both scheduled and as needed. Continue to monitor and adjust as necessary. Patient still not moving his bowels, denies nausea or vomiting. Requesting suppository and possible enema later today after therapy. Have discussed with nursing ADL mobility deficits: Patient is working with therapy and making progress. Continued to provide therapeutic interventions to give the patient skills and comfort with performing ADLs and mobility in a safe manner without putting upper extremities at risk. All records, vitals, labs and medications were reviewed. No other issues per patient, nursing or therapy. Objective - Exam Narrative Exam: MUSCULOSKELETAL SPECIALTY EXAM CONSTITUTIONAL: Well developed, well nourished, appropriately groomed RESPIRATORY: Clear to auscultation bilaterally, no increased work of breathing CARDIOVASCULAR: Regular Rate/ Rhythm, no swelling, edema or tenderness in BUE or BLE. Pulses palpable in all extremities. All extremities warm. GI: + bowel sounds, soft, NTTP, nondistended. INTEGUMENTARY: Surgical incisions clean dry and intact on bilateral shoulders, bruising noted. Otherwise normal, no lesion, rash, masses or bruising noted in extremities. MUSCULOSKELETAL: BUE and BLE normal without defect, crepitus, subluxation, effusion, arthritic changes or TTP (appropriate TTP to bilateral shoulders). BUE unable to test fully due to restrictions, cannoneer strength intact able to move wrist and elbows BLE 4+/5 good ROM, with normal tone NEURO: CN 2-12 grossly intact. Sensation intact in all extremities. No tremor noted in 4 extremities. POSTURE and GAIT: Sitting posture good. Balance and gait fair. PSYCH: Alert, oriented x3, affect appears normal. Insight appears intact. - Constitutional Vitals: Vital Signs - 12hr 10/29/21 10/29/21 10/30/21 21:45 22:14 06:05 Temperature Pulse Rate 74 74 Respiratory Rate Blood Pressure 161/65 156/65 Blood Pressure 161/65 [Left] O2 Sat by Pulse Oximetry 10/30/21 10/30/21 06:24 08:05 Temperature 97.8 F 97.7 F Pulse Rate 65 Respiratory 18 Rate Blood Pressure 132/58 Blood Pressure [Left] O2 Sat by Pulse 97 Oximetry - Allied health notes Allied health notes reviewed: nursing, PT, OT FIMS assessment as documented by PT/OT/ST: Locomotion- walk/wheelchair Ambulation Distance 55 - Labs CBC & Chem 7: 10/29/21 11:14 10/28/21 03:25 Labs: Laboratory Results - last 72 hr 10/27/21 10/27/21 10/28/21 16:42 21:28 03:25 WBC 6.9 RBC 2.90 L Hgb 8.5 L Hct 25.5 L MCV 88 MCH 29 MCHC 33 RDW 19.4 H Plt Count 659 H Lymph % (Auto) Treasure % (Auto) Sales Associate Eos % (Auto) Baso % (Auto) Lymph # (Auto) Treasure # (Auto) Eos # (Auto) Baso # (Auto) Add Manual Diff Complete Total Counted 100 Seg Neutrophils % Seg Neuts % (Manual) 51.0 Band Neutrophils % 0 Lymphocytes % (Manual) 29.0 Reactive Lymphs % (Man) 0 Monocytes % (Manual) 13.0 H Eosinophils % (Manual) 7.0 H Basophils % (Manual) 0 Metamyelocytes % 0 Myelocytes % 0 Promyelocytes % 0 Blast Cells % 0 Nucleated RBC % Not Reportable Seg Neutrophils # Seg Neutrophils # Man 3.5 Band Neutrophils # 0.0 Lymphocytes # (Manual) 2.0 Abs React Lymphs (Man) 0.0 Monocytes # (Manual) 0.9 H Eosinophils # (Manual) 0.5 H Basophils # (Manual) 0.0 Metamyelocytes # 0.0 Myelocytes # 0.0 Promyelocytes # 0.0 Blast Cells # 0.0 WBC Morphology Not Reportable Hypersegmented Neuts Not Reportable Hyposegmented Neuts Not Reportable Hypogranular Neuts Not Reportable Smudge Cells Not Reportable Toxic Granulation Not Reportable Toxic Vacuolation Not Reportable Dohle Bodies Not Reportable Pelger-Huet Anomaly Not Reportable Allison Rods Not Reportable Platelet Estimate Consistent w auto Clumped Platelets Not Reportable Plt Clumps, EDTA Not Reportable Large Platelets Not Reportable Giant Platelets Not Reportable Platelet Satelliting Not Reportable Plt Morphology Comment Not Reportable RBC Morphology Not Reportable Dimorphic RBCs Not Reportable Polychromasia Not Reportable Hypochromasia Not Reportable Poikilocytosis Not Reportable Anisocytosis Not Reportable Microcytosis Not Reportable Macrocytosis Not Reportable Spherocytes Not Reportable Pappenheimer Bodies Not Reportable Sickle Cells Not Reportable Target Cells Not Reportable Tear Drop Cells Not Reportable Ovalocytes Not Reportable Helmet Cells Not Reportable [place] Bodies Not Reportable [place] Rings Not Reportable Meliton Cells Not Reportable Bite Cells Not Reportable Crenated Cell Not Reportable Elliptocytes Not Reportable Acanthocytes (Spur) Not Reportable Rouleaux Not Reportable Hemoglobin C Crystals Not Reportable Schistocytes Not Reportable Malaria parasites Not Reportable Andrei Bodies Not Reportable Hem Pathologist Commnt No Sodium Potassium Chloride Carbon Dioxide Anion Gap BUN Creatinine Estimated GFR BUN/Creatinine Ratio Glucose POC Glucose 139 H 149 H Calcium Total Bilirubin AST ALT Alkaline Phosphatase Total Protein Albumin Albumin/Globulin Ratio 10/28/21 10/28/21 10/28/21 03:25 07:58 12:43 WBC RBC Hgb Hct MCV MCH MCHC RDW Plt Count Lymph % (Auto) Treasure % (Auto) Eos % (Auto) Baso % (Auto) Lymph # (Auto) Treasure # (Auto) Eos # (Auto) Baso # (Auto) Add Manual Diff Total Counted Seg Neutrophils % Seg Neuts % (Manual) Band Neutrophils % Lymphocytes % (Manual) Reactive Lymphs % (Man) Monocytes % (Manual) Eosinophils % (Manual) Basophils % (Manual) Metamyelocytes % Myelocytes % Promyelocytes % Blast Cells % Nucleated RBC % Seg Neutrophils # Seg Neutrophils # Man Band Neutrophils # Lymphocytes # (Manual) Abs React Lymphs (Man) Monocytes # (Manual) Eosinophils # (Manual) Basophils # (Manual) Metamyelocytes # Myelocytes # Promyelocytes # Blast Cells # WBC Morphology Hypersegmented Neuts Hyposegmented Neuts Hypogranular Neuts Smudge Cells Toxic Granulation Toxic Vacuolation Dohle Bodies Pelger-Huet Anomaly Allison Rods Platelet Estimate Clumped Platelets Plt Clumps, EDTA Large Platelets Giant Platelets Platelet Satelliting Plt Morphology Comment RBC Morphology Dimorphic RBCs Polychromasia Hypochromasia Poikilocytosis Anisocytosis Microcytosis Macrocytosis Spherocytes Pappenheimer Bodies Sickle Cells Target Cells Tear Drop Cells Ovalocytes Helmet Cells [place] Bodies [place] Rings Meliton Cells Bite Cells Crenated Cell Elliptocytes Acanthocytes (Spur) Rouleaux Hemoglobin C Crystals Schistocytes Malaria parasites Andrei Bodies Hem Pathologist Commnt Sodium 142 Potassium 4.5 Chloride 108.2 H Carbon Dioxide 26 Anion Gap 12 BUN 8 L Creatinine 0.5 L Estimated GFR > 60 BUN/Creatinine Ratio 16 Glucose 102 H POC Glucose 81 113 H Calcium 8.4 Total Bilirubin 0.30 AST 13 ALT 7 Alkaline Phosphatase 108 Total Protein 5.5 L Albumin 3.0 L Albumin/Globulin Ratio 1.2 10/28/21 10/28/21 10/29/21 17:29 21:05 11:14 WBC 10.7 RBC 3.23 L Hgb 9.8 L Hct 29.4 L MCV 91 MCH 30 MCHC 33 RDW 20.5 H Plt Count 674 H Lymph % (Auto) Sales Associate Treasure % (Auto) Sales Associate Eos % (Auto) Sales Associate Baso % (Auto) Sales Associate Lymph # (Auto) Sales Associate Treasure # (Auto) Sales Associate Eos # (Auto) Sales Associate Baso # (Auto) Sales Associate Add Manual Diff Total Counted Seg Neutrophils % Sales Associate Seg Neuts % (Manual) Band Neutrophils % Lymphocytes % (Manual) Reactive Lymphs % (Man) Monocytes % (Manual) Eosinophils % (Manual) Basophils % (Manual) Metamyelocytes % Myelocytes % Promyelocytes % Blast Cells % Nucleated RBC % Seg Neutrophils # Sales Associate Seg Neutrophils # Man Band Neutrophils # Lymphocytes # (Manual) Abs React Lymphs (Man) Monocytes # (Manual) Eosinophils # (Manual) Basophils # (Manual) Metamyelocytes # Myelocytes # Promyelocytes # Blast Cells # WBC Morphology Hypersegmented Neuts Hyposegmented Neuts Hypogranular Neuts Smudge Cells Toxic Granulation Toxic Vacuolation Dohle Bodies Pelger-Huet Anomaly Allison Rods Platelet Estimate Clumped Platelets Plt Clumps, EDTA Large Platelets Giant Platelets Platelet Satelliting Plt Morphology Comment RBC Morphology Dimorphic RBCs Polychromasia Hypochromasia Poikilocytosis Anisocytosis Microcytosis Macrocytosis Spherocytes Pappenheimer Bodies Sickle Cells Target Cells Tear Drop Cells Ovalocytes Helmet Cells [place] Bodies [place] Rings Meliton Cells Bite Cells Crenated Cell Elliptocytes Acanthocytes (Spur) Rouleaux Hemoglobin C Crystals Schistocytes Malaria parasites Andrei Bodies Hem Pathologist Commnt Sodium Potassium Chloride Carbon Dioxide Anion Gap BUN Creatinine Estimated GFR BUN/Creatinine Ratio Glucose POC Glucose 115 H 90 Calcium Total Bilirubin AST ALT Alkaline Phosphatase Total Protein Albumin Albumin/Globulin Ratio - Imaging and cardiology Other: report reviewed, image reviewed (Bilateral shoulder x-ray) Assessment and Plan Bilateral proximal humerus fractures: Continue nonweightbearing, no range of motion at shoulders. Follow-up with surgeon. External rotation sling for left upper extremity, right upper extremity simple sling. DVT prophylaxis. Bilateral shoulder x-rays reviewed, appreciate consult with Dr. Carrero Seizures: Continue Depakote and Keppra. Seizure precautions ordered. Patient will need to follow-up with neurology after discharge for further monitoring and adjustment of medication regimen. No driving until cleared by neurology. Diabetes: Continue metformin. Patient very well controlled at home. Have discontinued daily fingerstick glucose checks and sliding scale. May utilize if needed but patient is well controlled and only checks glucose once a week at home Hypertension: Continue monitoring and adjust medications as needed for normotension. Patient had difficulty on amlodipine 5 mg at outside hospital, per conversation with his son (who is a reeling and tubing machine operator) he would prefer to try 2.5 mg currently and monitor. Have discussed concerns with nursing on taking blood pressure in the same area on his leg. Asked patient to remind staff to take it at the same area each time if he notices they are taking it in a different area. Appreciate cardiology assistance Anemia: Improving. Labs pending for anemia work-up. Monitor. Transfuse if hemoglobin is less than 7 Thrombocytosis: Patient remains on aspirin 325 mg daily and Lovenox. Values seem in line with labs at outside hospital previously. We will continue to monitor for normalization Hypothyroidism: Continue levothyroxine. ADL dysfunction: OT will work on improving ability to perform ADLs (including assistive devices) to increase independence and decrease caregiver burden and improve functional transfers and mobility training. Difficulty walking: PT will work on gait training and proper use of assistive devices and advance as appropriate to use of stairs and outside ambulation on uneven surfaces. Unsteadiness on feet: PT will work on improving static and dynamic sitting and standing balance as well as proper use of assistive devices to decrease risk of falls. Abnormality of gait: PT will work to improve safety and efficiency of gait through neuromotor training and gait training along with instruction on proper use of assistive devices. Muscle weakness: PT & OT will work on strengthening exercises to improve functional strength including mixture of closed and open kinetic chain exercises. Debility: PT & OT will work on improving overall functional status to improve participation with ADLs, mobility and social involvement. Fatigue: PT & OT will work on improving endurance through aerobic exercises and therapeutic activity while monitoring patients tolerance for activity and vital signs as needed. DVT ppx: Lovenox Pain: Continue physical modalities in therapy and pain medications as needed to achieve functional pain control. Sleep: Monitor and address as needed. Bowel: Monitor and address as needed. Appetite: Monitor and address as needed. Discharge planning: Pending therapy progress and care plan meeting. Will continue discussion with therapy team, SW, patient and family. Restrictions/ Precautions: Falls, seizure WB status: FWB Functional Hx: ADLs: Independent Cognition: Independent Mobility: No AD Barriers to Discharge: Decreased mobility and ability to perform self care, balance deficits, weakness Estimated Length of Stay: 710 days Discharge Destination: Home with family
[2021-10-30] MEDS ORDERED: MINERAL OIL ENEMA 133 ML PR PRN (09:43)
[2021-10-30] MEDS: ENOXAPARIN 40 MG/0.4 ML INJ SUB-Q SCH (09:52)
[2021-10-30] MEDS: DOCUSATE SODIUM 100 MG CAP PO SCH (09:53)
[2021-10-30] MEDS: ASPIRIN EC 325 MG TAB PO SCH (09:53)
[2021-10-30] MEDS: amLODIPine 5 MG TAB PO SCH (09:54)
[2021-10-30] MEDS: CETIRIZINE 10 MG TAB PO SCH (09:56)
[2021-10-30] MEDS: levETIRAcetam 500 MG TAB PO SCH ×2 (09:56→21:03)
[2021-10-30] MEDS: PANTOPRAZOLE 20 MG TAB PO SCH (09:56)
[2021-10-30] MEDS: DIVALPROEX ER 500 MG TAB PO SCH ×2 (10:01→21:02)
--- NOTE | 2021-10-30 10:25 | Consultation ---
History of Present Illness Consult date: 10/30/21 Consult reason: hypertension History of present illness: 75-year-old male admitted for rehab has a history of a fall and bilateral humeral fractures which required open reduction and internal fixation. Past History Past Medical History: cancer (Prostate), diabetes, hypothyroidism Past Surgical History: Other (Prostatectomy and radiation, right reverse total shoulder arthroplasty, left proximal humerus ORIF) Social history: , lives with family. denies: smoking, alcohol abuse Family history: no significant family history Medications and Allergies Allergies Allergy/AdvReac Type Severity Reaction Status Date / Time No Known Allergies Allergy Unverified 10/27/21 12:21 Home Medications Medication Instructions Recorded Confirmed Last Taken Type Aspirin [Aspirin BABY CHEW TAB] 81 mg PO DAILY 10/27/21 10/27/21 10/26/[address] [Depakote Dr] 500 mg PO BID 10/27/21 10/27/21 10/27/21 History Docusate Sodium [Colace CAP] 100 mg PO DAILY 10/27/21 10/27/21 10/27/21 History Gabapentin 600 mg PO QHS 10/27/21 10/27/21 10/26/21 History Ibuprofen [Motrin Ib] 600 mg PO DAILY PRN 10/27/21 10/27/21 10/26/21 History Levothyroxine [Synthroid] 50 mcg PO DAILY 10/27/21 10/27/21 10/27/21 History Omeprazole 20 mg PO DAILY 10/27/21 10/27/21 10/27/21 History Zyrtec 10mg tab 10 mg PO DAILY 10/27/21 10/27/21 10/27/21 History levETIRAcetam [Keppra TAB] 1,000 mg PO BID 10/27/21 10/27/21 10/27/21 History metFORMIN [Glucophage] 500 mg PO QHS 10/27/21 10/27/21 10/26/21 History oxyCODONE [roxiCODONE] 5 mg PO Q6HR PRN 10/27/21 10/27/21 10/27/21 History Active Meds: Active Medications Acetaminophen (Acetaminophen 325 Mg Tab) 650 mg PO Q6H PRN PRN Reason: Pain MILD(1-3)/Fever >100.5/GONZALEZ Amlodipine Besylate (Amlodipine 5 Mg Tab) 2.5 mg PO QDAY [facility] Last Admin: 10/30/21 09:54 Dose: 2.5 mg Aspirin (Aspirin Ec 325 Mg Tab) 325 mg PO QDAY [facility] Last Admin: 10/30/21 09:53 Dose: 325 mg Bisacodyl (Bisacodyl 10 Mg Rect Supp) 10 mg AK QDAY PRN PRN Reason: Constipation Cetirizine HCl (Cetirizine 10 Mg Tab) 10 mg PO QDAY [facility] Last Admin: 10/30/21 09:56 Dose: 10 mg Dextrose (Dextrose 50% In Water (25gm) 50 Ml Syringe) 50 ml IV Q30MIN PRN; Protocol PRN Reason: Hypoglycemia Divalproex Sodium (Divalproex Er 500 Mg Tab) 500 mg PO BID [facility] Last Admin: 10/30/21 10:01 Dose: 500 mg Docusate Sodium (Docusate Sodium 100 Mg Cap) 100 mg PO DAILY [facility] Last Admin: 10/30/21 09:53 Dose: 100 mg Enoxaparin Sodium (Enoxaparin 40 Mg/0.4 Ml Inj) 40 mg SUB-Q QDAY [facility] Last Admin: 10/30/21 09:52 Dose: 40 mg Gabapentin (Gabapentin 300 Mg Cap) 600 mg PO HS [facility] Last Admin: 10/29/21 21:32 Dose: 600 mg Hydralazine HCl (Hydralazine 20 Mg/1 Ml Inj) 10 mg IV Q4H PRN PRN Reason: Hypertension Ibuprofen (Ibuprofen 200 Mg Tab) 600 mg PO Q8H PRN PRN Reason: Pain, Mild (1-3) Last Admin: 10/30/21 02:51 Dose: 600 mg Levetiracetam (Levetiracetam 500 Mg Tab) 1,000 mg PO BID [facility] Last Admin: 10/30/21 09:56 Dose: 1,000 mg Levothyroxine Sodium (Levothyroxine 50 Mcg Tab) 50 mcg PO DAILY@0600 [facility] Last Admin: 10/30/21 06:05 Dose: 50 mcg Metformin HCl (Metformin 500 Mg Tab) 500 mg PO QPM [facility] Last Admin: 10/29/21 18:19 Dose: 500 mg Mineral Oil (Mineral Oil Enema 133 Ml) 133 ml AK QDAY PRN PRN Reason: Constipation Ondansetron HCl (Ondansetron 4 Mg Odt Tab) 4 mg PO Q8H PRN PRN Reason: Nausea And Vomiting Oxycodone HCl (Oxycodone 5 Mg Tab) 5 mg PO Q6H PRN PRN Reason: Pain, Moderate (4-6) Last Admin: 10/29/21 18:19 Dose: 5 mg Pantoprazole Sodium (Pantoprazole 20 Mg Tab) 20 mg PO QDAC [facility] Last Admin: 10/30/21 09:56 Dose: 20 mg Polyethylene Glycol (Polyethylene Glycol 3350 17 Gm Powder) 17 gm PO QDAY PRN PRN Reason: Constipation Review of Systems Constitutional: no weight loss, no weight gain, no fever, no chills Ears, nose, mouth and throat: no ear pain, no ear discharge, no tinnitis Cardiovascular: no chest pain, no orthopnea, no palpitations, no edema Respiratory: no cough, no cough with sputum, no excessive sputum, no hemoptysis, no shortness of breath, no dyspnea on exertion Gastrointestinal: no abdominal pain, no nausea, no vomiting, no diarrhea Genitourinary Male: no dysuria, no hematuria, no flank pain, no urinary frequency, no urinary hesitancy Rectal: no pain, no incontinence, no bleeding Integumentary: no rash, no pruritis, no redness Neurological: no paralysis, no weakness, no parathesias, no numbness Psychiatric: no anxiety, no memory loss, no disorientation Endocrine: no cold intolerance, no heat intolerance, no polyphagia, no excessive thirst, no polydipsia, no polyuria Hematologic/Lymphatic: no easy bruising, no easy bleeding Allergic/Immunologic: no urticaria, no allergic rhinitis, no wheezing Physical Examination Vital Signs Pulse Ox 98 10/27/21 16:26 General appearance: no acute distress, well-nourished HEENT: Positive: PERRL, Normocephaly, Mucus Membranes Moist Neck: Positive: neck supple, trachea midline. Negative: JVD/HJR Cardiac: Positive: Regular Rate, S1/S2. Negative: S3, S4 Lungs: Positive: clear to auscultation, No Wheeze, Rales, Rhonchi Neuro: Positive: Grossly Intact Abdomen: Positive: Unremarkable, Active Bowel Sounds Male genitourinary: Positive: normal Extremities: Absent: edema Results 10/29/21 11:14 10/28/21 03:25 CBC 10/29/21 Range/Units 11:14 WBC 10.7 (4.5-11.0) K/mm3 RBC 3.23 L (3.65-5.03) M/mm3 Hgb 9.8 L (11.8-15.2) gm/dl Hct 29.4 L (35.5-45.6) % Plt Count 674 H (140-440) K/mm3 Lymph # (Auto) Tele Grout Sewer Line Repairer [place] # (Auto) Tele Grout Sewer Line Repairer Eos # (Auto) Tele Grout Sewer Line Repairer Baso # (Auto) Tele Grout Sewer Line Repairer - EKG Interpretation EKG: sinus rhythm EKG interpretations - Telemetry EKG Rhythm: Sinus Rhythm Assessment and Plan 1. Status post bilateral humeral fracture 2. Essential hypertension Plan. Patient is currently hemodynamically stable continue rehab we will follow intermittently
[2021-10-30 11:48] LABS: Iron 38 ug/dL (49-181); Total Iron Binding Capacity 275 mcg/dL (250-450)
[2021-10-30] MEDS: ACETAMINOPHEN 325 MG TAB PO PRN (15:24)
[2021-10-30] MEDS: metFORMIN 500 MG TAB PO SCH (17:44)
[2021-10-30] MEDS: GABAPENTIN 300 MG CAP PO SCH (21:03)
--- NOTE | 2021-10-30 23:36 | IRU Plan of Care ---
Interdisciplinary Plan of Care - IP IRU INTERDISCIPLINARY PLAN: [facility] Inpatient Rehab Unit Plan of Care IRU Interdisciplinary Care Plan Start: 10/30/21 23:13 Freq: Status: Active Protocol: Document 10/30/21 23:13 TH (Rec: 10/30/21 23:17 TH [id number]) Interdisciplinary Problem List Interdisciplinary Problem List Interdisciplinary Problem List Impaired Bathing/Grooming, Query Text:Answers will Trigger Problems Impaired Dressing,Impaired and Outcomes on Worklist. Mobility,Impaired Transfers, Impaired Toileting,Pain Management,Discharge Concerns, Impaired Safety IRU Interdisciplinary Care Plan Therapy Services Therapy Services Will Include: Physical Therapy,Occupational Query Text:Patient will be seen for a Therapy minimum of 3 hours of daily therapy 5 out of 7 days a week. Therapy intensity may be adjusted within a 7 consecutive day period to effectively serve the individual needs of the patient. Treatment Frequency/Intensity/Duration Treatment Frequency 5 DAYS PER WEEK Treatment Intensity 3 HOURS PER DAY Treatment Duration 7-10 DAYS Problem Area: Eating/Swallowing Eating/Swallowing Outcomes Eating/Swallowing Interventions Problem Area: Bathing/Grooming Bathing/Grooming Outcomes Improve [place] w/ Grooming,Improve [place] w/ Bathing Bathing/Grooming Interventions ADL Training,Use of Assistive Devices,Therapeutic Exercise, Therapeutic Activity, Neuromuscular Re-Education, Balance Work,Activity Tolerance Work,Patient/ Caregiver Education Problem Area: Dressing Dressing Outcomes Improve [place] w/ UB Dressing,Improve [place] w/ LB Dressing Dressing Interventions ADL Training,Use of Assistive Devices,Neuromuscular Re- Education,Therapeutic Exercise ,Balance Work,Patient/ Caregiver Education Problem Area: Mobility Mobility Outcomes Improve [place] w/ Bed Mobility,Improve [place] w/ Ambulation,Improve [place] w/ Stairs/Curb, Improve [place] w/ Wheelchair Mobility Interventions Therapeutic Exercise, Neuromuscular Re-Ed.,Use of Assistive Devices,Patient/ Caregiver Education,Bed Mobility Work,Gait Training,W/ C Mobility Work Problem Area: Transfers Transfers Outcomes Improve [place] w/ Bed Transfers,Improve [place] w/ Tub/Shower Transfers, Improve [place] w/ Car Transfers Transfers Interventions Transfer Training,Therapeutic Exercise,Neuromuscular Re- Education,Use of Assistive Devices,Patient/Caregiver Education Problem Area: Bowel/Bladder Managment Bowel/Bladder Outcomes Bowel/Bladder Interventions Problem Area: Toileting Toileting Outcomes Improve [place] w/ Toileting Toileting Interventions ADL Training,Balance Work,Use of Assistive Devices,Patient/ Caregiver Education Problem Area: Nutrition Nutrition Outcomes Nutrition Interventions Problem Area: Comprehension Comprehension Outcomes Comprehension Interventions Problem Area: Expression Expression Outcomes Expression Interventions Problem Area: Problem Solving Problem Solving Outcomes Problem Solving Interventions Problem Area: Memory Memory Outcomes Memory Interventions Problem Area: Pain Management Pain Management Outcomes Pain Management Interventions Problem Area: Knowledge Deficits Knowledge Deficits Outcomes Knowledge Deficits Interventions Problem Area: Skin/Tissue Integrity Skin/Tissue Integrity Outcomes Skin/Tissue Integrity Interventions Problem Area: Social Interaction Social Interaction Outcomes Social Interaction Interventions Problem Area: Adjustment to Disability Adjustment to Disability Outcomes Adjustment to Disability Interventions Problem Area: Discharge Concerns Discharge Concerns Outcomes Discharge Concerns Interventions Problem Area: Community Reintegration Community Reintegration Outcomes Community Reintegration Interventions Problem Area: Home Management Home Management Outcomes Home Management Interventions Problem Area: Safety Safety Outcomes Provide Safe Environment, Perform Selfcare Safely, Demonstrate Good Safety w/ Transfers/Mobility Safety Interventions Identify Fall Risk,[place] Pt. to Environment,Reduce Environmental Hazards Problem Area: Medication Education Medication Education Outcomes Medication Education Interventions Problem Area: Diabetes Education Diabetes Education Outcomes Diabetes Education Interventions Problem Area: Oxygenation Oxygenation Outcomes Oxygenation Interventions Problem Area: Cardiovascular Cardiovascular Outcomes Cardiovascular Interventions Physician Only Medical Prognosis and Rehabilitation Good rehab potential, good prognosis Potential (Completed by Physician) This plan of care has been developed based on the findings from the pre- admission assessment, post admission physician evaluation, information gathered from the assessments from all therapy disciplines and other pertinent clinicians. The plan of care has been reviewed and discussed in collaboration with the interdisciplinary team. The plan of care will be reviewed and updated at least weekly.
[2021-10-31] MEDS: LEVOTHYROXINE 50 MCG TAB PO SCH (06:05)
--- NOTE | 2021-10-31 07:24 | Progress Note ---
Subjective Date of service: 10/31/21 Principal diagnosis: Fall with bilateral proximal humerus fractures Interval history: 75-year-old male who was on a cruise and ended up falling in the shower early on. After the cruise he ended up falling again and having seizure activity. Was taken to [facility] and found to have bilateral proximal humerus fractures with posterior dislocation. He was started on AEDs and neurology consult was obtained. He was transferred to [facility] on 10/18 and underwent a right total shoulder arthroplasty and a left ORIF. Patient was discharged from the outside hospital and after a few days of waiting for insurance approval was admitted for acute inpatient rehabilitation. Patient remains on DVT prophylaxis with Lovenox. Per Ortho his right upper extremity may be in a simple sling, left upper extremity is in external rotation sling. Nonweightbearing bilaterally and slight range of motion (pendulums) okay for axillary hygiene only. Patient has a follow-up appointment tomorrow with a local orthopedic surgeon. Bandages have been removed per outside hospital according to the patient. After the patient was medically stabilized they were transferred for further rehabilitation. All available medical records have been reviewed. Plan of care was discussed with patient. Interval History: Patient is participating in therapy and making reasonable progress. Taking rest breaks as needed. +BM. Denies palpitations, dyspnea, cough, N/V, weakness. Bilateral proximal humerus fractures: Status post left ORIF and right TSA. Was able to consult in-house orthopedics, appreciate Dr. Carrero's assistance. Discussed his findings yesterday, no issues with prior surgeries noted. Patient is not having any acute issues currently. Remains on DVT prophylaxis while in house, weightbearing and range of motion restrictions, and slings. X-rays reviewed, postop changes noted without any apparent issues in hardware. Patient did not admit with a right upper extremity sling, states outside hospital said he did not need to wear it but Dr. Carrero is stating we do need it 24/7. My experience with reverse total shoulder arthroplasties surgeons do want the arm in a sling. We will look in the room to see if we can find his right upper extremity sling and reinforce that he needs to be worn 24/7. Seizures: Continue medications, no seizure activity appreciated or reported. Continue seizure precaution Diabetes: Very well controlled. Continue metformin. We will stop fingerstick glucose checks and sliding scale as patient is well controlled on current regimen. Can perform glucose checks as needed if there are any acute changes Anemia: Last value was 8.8 at outside hospital prior to discharge. On his initial labs with us he was 8.5 and normocytic. Cardiology ordered a repeat CBC yesterday which resulted later in the day but does show that he is improved to 9.8. Iron slightly low however iron stores are within normal limits, B12 and folate normal. Thrombocytosis: In line with values at outside hospital. Likely reactive, monitor for normalization. Patient remains on aspirin and Lovenox Hypertension: New diagnosis,, continue amlodipine 2.5 mg. Blood pressures have been variable but seems to be a function of where the pressure is being taken. We will continue to monitor and adjust medication as needed. Appreciate cardiology assistance Constipation: Medications available both scheduled and as needed. Positive bowel movement yesterday. Continue medications and adjust as needed ADL mobility deficits: Patient is working with therapy and making progress. Continued to provide therapeutic interventions to give the patient skills and comfort with performing ADLs and mobility in a safe manner without putting upper extremities at risk. All records, vitals, labs and medications were reviewed. No other issues per patient, nursing or therapy. Objective - Exam Narrative Exam: MUSCULOSKELETAL SPECIALTY EXAM CONSTITUTIONAL: Well developed, well nourished, appropriately groomed RESPIRATORY: Clear to auscultation bilaterally, no increased work of breathing CARDIOVASCULAR: Regular Rate/ Rhythm, no swelling, edema or tenderness in BUE or BLE. All extremities warm. GI: + bowel sounds, soft, NTTP, nondistended. INTEGUMENTARY: Surgical incisions clean dry and intact on bilateral shoulders, bruising noted. Otherwise normal, no lesion, rash, masses or bruising noted in extremities. MUSCULOSKELETAL: BUE and BLE normal without defect, crepitus, subluxation, effusion, arthritic changes or TTP (appropriate TTP to bilateral shoulders). BUE unable to test fully due to restrictions, retail sales clerk strength intact able to move wrist and elbows BLE 4+/5 good ROM, with normal tone NEURO: CN 2-12 grossly intact. Sensation intact in all extremities. No tremor noted in 4 extremities. POSTURE and GAIT: Sitting posture good. Balance and gait fair. PSYCH: Alert, oriented x3, affect appears normal. Insight appears intact. - Constitutional Vitals: Vital Signs - 12hr 10/30/21 10/30/21 19:50 20:00 Temperature 97.7 F Pulse Rate 72 Respiratory 16 Rate Blood Pressure 136/71 O2 Sat by Pulse 96 97 Oximetry - Allied health notes Allied health notes reviewed: nursing, PT, OT FIMS assessment as documented by PT/OT/ST: Locomotion- walk/wheelchair Ambulation Distance 55 - Labs CBC & Chem 7: 10/29/21 11:14 10/28/21 03:25 Labs: Laboratory Results - last 72 hr 10/28/21 10/28/21 10/28/21 07:58 12:43 17:29 WBC RBC Hgb Hct MCV MCH MCHC RDW Plt Count Lymph % (Auto) [place] % (Auto) Eos % (Auto) Baso % (Auto) Lymph # (Auto) [place] # (Auto) Eos # (Auto) Baso # (Auto) Seg Neutrophils % Seg Neutrophils # POC Glucose 81 113 H 115 H Iron TIBC Ferritin Vitamin B12 Folate 10/28/21 10/29/21 10/30/21 21:05 11:14 10:36 WBC 10.7 RBC 3.23 L Hgb 9.8 L Hct 29.4 L MCV 91 MCH 30 MCHC 33 RDW 20.5 H Plt Count 674 H Lymph % (Auto) Greenhouse Worker [place] % (Auto) Greenhouse Worker Eos % (Auto) Greenhouse Worker Baso % (Auto) Greenhouse Worker Lymph # (Auto) Greenhouse Worker [place] # (Auto) Greenhouse Worker Eos # (Auto) Greenhouse Worker Baso # (Auto) Greenhouse Worker Seg Neutrophils % Greenhouse Worker Seg Neutrophils # Greenhouse Worker POC Glucose 90 Iron 38 L TIBC 275 Ferritin Vitamin B12 Folate 10/30/21 10/30/21 10/30/21 10:36 10:36 10:36 WBC RBC Hgb Hct MCV MCH MCHC RDW Plt Count Lymph % (Auto) [place] % (Auto) Eos % (Auto) Baso % (Auto) Lymph # (Auto) [place] # (Auto) Eos # (Auto) Baso # (Auto) Seg Neutrophils % Seg Neutrophils # POC Glucose Iron TIBC Ferritin 132.3 Vitamin B12 > 2000 H Folate > 20.0 Assessment and Plan Bilateral proximal humerus fractures: Continue nonweightbearing, no range of motion at shoulders. Follow-up with surgeon. External rotation sling for left upper extremity, right upper extremity simple sling. DVT prophylaxis. Bilateral shoulder x-rays reviewed, appreciate consult with Dr. Carrero. We will look for right upper extremity sling in the room Seizures: Continue Depakote and Keppra. Seizure precautions ordered. Patient will need to follow-up with neurology after discharge for further monitoring and adjustment of medication regimen. No driving until cleared by neurology. Diabetes: Continue metformin. Patient very well controlled at home. Have discontinued daily fingerstick glucose checks and sliding scale. May utilize if needed but patient is well controlled and only checks glucose once a week at home Hypertension: Continue monitoring and adjust medications as needed for normotension. Patient had difficulty on amlodipine 5 mg at outside hospital, per conversation with his son (who is a senior account director) he would prefer to try 2.5 mg currently and monitor. Have discussed concerns with nursing on taking blood pressure in the same area on his leg. Asked patient to remind staff to take it at the same area each time if he notices they are taking it in a different area. Appreciate cardiology assistance Anemia: Improving. Iron slightly low but iron stores within normal limits. Monitor. Transfuse if hemoglobin is less than 7 Thrombocytosis: Patient remains on aspirin 325 mg daily and Lovenox. Values seem in line with labs at outside hospital previously. We will continue to monitor for normalization Hypothyroidism: Continue levothyroxine. ADL dysfunction: OT will work on improving ability to perform ADLs (including assistive devices) to increase independence and decrease caregiver burden and improve functional transfers and mobility training. Difficulty walking: PT will work on gait training and proper use of assistive devices and advance as appropriate to use of stairs and outside ambulation on uneven surfaces. Unsteadiness on feet: PT will work on improving static and dynamic sitting and standing balance as well as proper use of assistive devices to decrease risk of falls. Abnormality of gait: PT will work to improve safety and efficiency of gait through neuromotor training and gait training along with instruction on proper use of assistive devices. Muscle weakness: PT & OT will work on strengthening exercises to improve functional strength including mixture of closed and open kinetic chain ex ercises. Debility: PT & OT will work on improving overall functional status to improve participation with ADLs, mobility and social involvement. Fatigue: PT & OT will work on improving endurance through aerobic exercises and therapeutic activity while monitoring patients tolerance for activity and vital signs as needed. DVT ppx: Lovenox Pain: Continue physical modalities in therapy and pain medications as needed to achieve functional pain control. Sleep: Monitor and address as needed. Bowel: Monitor and address as needed. Appetite: Monitor and address as needed. Discharge planning: Pending therapy progress and care plan meeting. Will continue discussion with therapy team, SW, patient and family. Restrictions/ Precautions: Falls, seizure WB status: FWB Functional Hx: ADLs: Independent Cognition: Independent Mobility: No AD Barriers to Discharge: Decreased mobility and ability to perform self care, balance deficits, weakness Estimated Length of Stay: 710 days Discharge Destination: Home with family
[2021-10-31] MEDS: DIVALPROEX ER 500 MG TAB PO SCH ×2 (09:33→23:11)
[2021-10-31] MEDS: ASPIRIN EC 325 MG TAB PO SCH (09:33)
[2021-10-31] MEDS: ENOXAPARIN 40 MG/0.4 ML INJ SUB-Q SCH (09:33)
[2021-10-31] MEDS: DOCUSATE SODIUM 100 MG CAP PO SCH (09:33)
[2021-10-31] MEDS: levETIRAcetam 500 MG TAB PO SCH ×2 (09:33→22:59)
[2021-10-31] MEDS: PANTOPRAZOLE 20 MG TAB PO SCH (09:34)
[2021-10-31] MEDS: amLODIPine 5 MG TAB PO SCH (09:34)
[2021-10-31] MEDS: CETIRIZINE 10 MG TAB PO SCH (09:34)
[2021-10-31] MEDS: POLYETHYLENE GLYCOL 3350 17 GM POWDER PO PRN (09:44)
[2021-10-31] MEDS: ACETAMINOPHEN 325 MG TAB PO PRN (11:51)
[2021-10-31] MEDS: metFORMIN 500 MG TAB PO SCH (17:26)
[2021-10-31] MEDS: IBUPROFEN 200 MG TAB PO PRN (17:29)
[2021-10-31] MEDS: GABAPENTIN 300 MG CAP PO SCH (22:59)
[2021-10-31] MEDS: oxyCODONE 5 MG TAB PO PRN (23:09)
[2021-11-01] MEDS: LEVOTHYROXINE 50 MCG TAB PO SCH (05:31)
[2021-11-01] MEDS: DIVALPROEX ER 500 MG TAB PO SCH ×2 (09:49→21:31)
[2021-11-01] MEDS: ENOXAPARIN 40 MG/0.4 ML INJ SUB-Q SCH (09:50)
[2021-11-01] MEDS: oxyCODONE 5 MG TAB PO PRN (09:50)
[2021-11-01] MEDS: DOCUSATE SODIUM 100 MG CAP PO SCH (09:51)
[2021-11-01] MEDS: levETIRAcetam 500 MG TAB PO SCH ×2 (09:51→21:30)
[2021-11-01] MEDS: PANTOPRAZOLE 20 MG TAB PO SCH (09:51)
[2021-11-01] MEDS: CETIRIZINE 10 MG TAB PO SCH (09:51)
[2021-11-01] MEDS: ASPIRIN EC 325 MG TAB PO SCH (09:51)
[2021-11-01] MEDS: amLODIPine 5 MG TAB PO SCH (10:05)
--- NOTE | 2021-11-01 15:43 | Progress Note ---
Subjective Date of service: 11/01/21 Principal diagnosis: Fall with bilateral proximal humerus fractures Interval history: 75-year-old male who was on a cruise and ended up falling in the shower early on. After the cruise he ended up falling again and having seizure activity. Was taken to [facility] and found to have bilateral proximal humerus fractures with posterior dislocation. He was started on AEDs and neurology consult was obtained. He was transferred to [facility] on 10/18 and underwent a right total shoulder arthroplasty and a left ORIF. Patient was discharged from the outside hospital and after a few days of waiting for insurance approval was admitted for acute inpatient rehabilitation. Patient remains on DVT prophylaxis with Lovenox. Per Ortho his right upper extremity may be in a simple sling, left upper extremity is in external rotation sling. Nonweightbearing bilaterally and slight range of motion (pendulums) okay for axillary hygiene only. Patient has a follow-up appointment tomorrow with a local orthopedic surgeon. Bandages have been removed per outside hospital according to the patient. After the patient was medically stabilized they were transferred for further rehabilitation. All available medical records have been reviewed. Plan of care was discussed with patient. Interval History: Patient is participating in therapy and making reasonable progress. Taking rest breaks as needed. +BM. Denies palpitations, dyspnea, cough, N/V, weakness. Bilateral proximal humerus fractures: Status post left ORIF and right TSA. Was able to consult in-house orthopedics, appreciate Dr. Carrero's assistance. Discussed his findings yesterday, no issues with prior surgeries noted. Patient is not having any acute issues currently. Remains on DVT prophylaxis while in house, weightbearing and range of motion restrictions, and slings. X-rays reviewed, postop changes noted without any apparent issues in hardware. Right upper extremity in a sling /, elbow elevated when in bed so the patient can see his elbow at all times. Seizures: Continue medications, no seizure activity appreciated or reported. Continue seizure precaution Diabetes: Very well controlled. Continue metformin. We will stop fingerstick glucose checks and sliding scale as patient is well controlled on current regimen. Can perform glucose checks as needed if there are any acute changes Anemia: Last value was 8.8 at outside hospital prior to discharge. On his initial labs with us he was 8.5 and normocytic. Hgb improved to 9.8, today's labs pending. Iron slightly low however iron stores are within normal limits, B12 and folate normal. Thrombocytosis: In line with values at outside hospital. Likely reactive, monitor for normalization. Patient remains on aspirin and Lovenox Hypertension: New diagnosis, continue amlodipine 2.5 mg. Blood pressures have been variable but seems to be a function of where the pressure is being taken. We will continue to monitor and adjust medication as needed. Appreciate cardiology assistance Constipation: Medications available both scheduled and as needed. Positive bowel movement yesterday. Continue medications and adjust as needed ADL mobility deficits: Patient is working with therapy and making progress. Continued to provide therapeutic interventions to give the patient skills and comfort with performing ADLs and mobility in a safe manner without putting upper extremities at risk. All records, vitals, labs and medications were reviewed. No other issues per patient, nursing or therapy. Objective - Exam Narrative Exam: MUSCULOSKELETAL SPECIALTY EXAM CONSTITUTIONAL: Well developed, well nourished, appropriately groomed RESPIRATORY: Clear to auscultation bilaterally, no increased work of breathing CARDIOVASCULAR: Regular Rate/ Rhythm, no swelling, edema or tenderness in BUE or BLE. All extremities warm. GI: + bowel sounds, soft, NTTP, nondistended. INTEGUMENTARY: Surgical incisions clean dry and intact on bilateral shoulders, bruising noted. Otherwise normal, no lesion, rash, masses or bruising noted in extremities. MUSCULOSKELETAL: BUE and BLE normal without defect, crepitus, subluxation, effusion, arthritic changes or TTP (appropriate TTP to bilateral shoulders). BUE unable to test fully due to restrictions, tare worker strength intact able to move wrist and elbows BLE 4+/5 good ROM, with normal tone NEURO: CN 2-12 grossly intact. Sensation intact in all extremities. No tremor noted in 4 extremities. POSTURE and GAIT: Sitting posture good. PSYCH: Alert, oriented x3, affect appears normal. Insight appears intact. - Constitutional Vitals: Vital Signs - 12hr 11/01/21 11/01/21 11/01/21 08:00 08:50 09:50 Temperature 98 F Pulse Rate 68 Respiratory 16 16 Rate Blood Pressure Blood Pressure 174/91 [Left] O2 Sat by Pulse 99 98 Oximetry 11/01/21 11/01/21 10:05 13:00 Temperature 98.2 F Pulse Rate 86 62 Respiratory Rate Blood Pressure 174/91 Blood Pressure 126/51 [Left] O2 Sat by Pulse Oximetry - Allied health notes Allied health notes reviewed: nursing, PT, OT FIMS assessment as documented by PT/OT/ST: Locomotion- walk/wheelchair Ambulation Distance 55 - Labs CBC & Chem 7: 10/29/21 11:14 10/28/21 03:25 Labs: Laboratory Results - last 72 hr 10/30/21 10/30/21 10/30/21 10:36 10:36 10:36 Iron 38 L TIBC 275 Ferritin 132.3 Vitamin B12 > 2000 H Folate 10/30/21 10:36 Iron TIBC Ferritin Vitamin B12 Folate > 20.0 Assessment and Plan Bilateral proximal humerus fractures: Continue nonweightbearing, no range of motion at shoulders. Follow-up with surgeon. External rotation sling for left upper extremity, right upper extremity simple sling. DVT prophylaxis. Bilateral shoulder x-rays reviewed, appreciate consult with Dr. Carrero. Right upper extremity in simple sling 24/10 with elbow elevated on pillow when in bed Seizures: Continue Depakote and Keppra. Seizure precautions ordered. Patient will need to follow-up with neurology after discharge for further monitoring and adjustment of medication regimen. No driving until cleared by neurology. Diabetes: Continue metformin. Patient very well controlled at home. Have discontinued daily fingerstick glucose checks and sliding scale. May utilize if needed but patient is well controlled and only checks glucose once a week at home Hypertension: Continue monitoring and adjust medications as needed for normot ension. Patient had difficulty on amlodipine 5 mg at outside hospital, per conversation with his son (who is a skip tender) he would prefer to try 2.5 mg currently and monitor. Have discussed concerns with nursing on taking blood pressure in the same area on his leg. Asked patient to remind staff to take it at the same area each time if he notices they are taking it in a different area. Appreciate cardiology assistance Anemia: Improving. Iron slightly low but iron stores within normal limits. Monitor. Transfuse if hemoglobin is less than 7 Thrombocytosis: Patient remains on aspirin 325 mg daily and Lovenox. Values seem in line with labs at outside hospital previously. We will continue to monitor for normalization Hypothyroidism: Continue levothyroxine. ADL dysfunction: OT will work on improving ability to perform ADLs (including assistive devices) to increase independence and decrease caregiver burden and improve functional transfers and mobility training. Difficulty walking: PT will work on gait training and proper use of assistive devices and advance as appropriate to use of stairs and outside ambulation on uneven surfaces. Unsteadiness on feet: PT will work on improving static and dynamic sitting and standing balance as well as proper use of assistive devices to decrease risk of falls. Abnormality of gait: PT will work to improve safety and efficiency of gait through neuromotor training and gait training along with instruction on proper use of assistive devices. Muscle weakness: PT & OT will work on strengthening exercises to improve functional strength including mixture of closed and open kinetic chain exercises. Debility: PT & OT will work on improving overall functional status to improve participation with ADLs, mobility and social involvement. Fatigue: PT & OT will work on improving endurance through aerobic exercises and therapeutic activity while monitoring patients tolerance for activity and vital signs as needed. DVT ppx: Lovenox Pain: Continue physical modalities in therapy and pain medications as needed to achieve functional pain control. Sleep: Monitor and address as needed. Bowel: Monitor and address as needed. Medications scheduled and as needed Appetite: Monitor and address as needed. Discharge planning: Pending therapy progress and care plan meeting. Will continue discussion with therapy team, SW, patient and family. Restrictions/ Precautions: Falls, seizure WB status: FWB Functional Hx: ADLs: Independent Cognition: Independent Mobility: No AD Barriers to Discharge: Decreased mobility and ability to perform self care, balance deficits, weakness Estimated Length of Stay: 710 days Discharge Destination: Home with family
[2021-11-01] MEDS: metFORMIN 500 MG TAB PO SCH (18:21)
[2021-11-01] MEDS: GABAPENTIN 300 MG CAP PO SCH ×2 (18:21→21:31)
[2021-11-01 18:33] LABS: Hematocrit 31.9 % (35.5-45.6); Hemoglobin 10.4 gm/dl (11.8-15.2); Mean Corpuscular HGB Conc 33 % (32-34); Mean Corpuscular Volume 89 fl (84-94); Platelet Count 613 K/mm3 (140-440); Red Blood Count 3.57 M/mm3 (3.65-5.03); Red Cell Distribution Width 19.5 % (13.2-15.2)
[2021-11-01 18:50] LABS: Blood Urea Nitrogen 13 mg/dL (9-20); Calcium 9.1 mg/dL (8.4-10.2); Hemolysis Index 3
[2021-11-01 19:02] LABS: BUN/Creatinine Ratio 26
[2021-11-02] MEDS: LEVOTHYROXINE 50 MCG TAB PO SCH (06:23)
[2021-11-02] MEDS: ENOXAPARIN 40 MG/0.4 ML INJ SUB-Q SCH (12:02)
[2021-11-02] MEDS: PANTOPRAZOLE 20 MG TAB PO SCH (12:03)
[2021-11-02] MEDS: levETIRAcetam 500 MG TAB PO SCH ×2 (12:03→21:27)
[2021-11-02] MEDS: ASPIRIN EC 325 MG TAB PO SCH (12:04)
[2021-11-02] MEDS: CETIRIZINE 10 MG TAB PO SCH (12:04)
[2021-11-02] MEDS: DIVALPROEX ER 500 MG TAB PO SCH (12:05)
[2021-11-02] MEDS: amLODIPine 5 MG TAB PO SCH (12:08)
--- NOTE | 2021-11-02 12:21 | Progress Note ---
Subjective Date of service: 11/02/21 Principal diagnosis: Fall with bilateral proximal humerus fractures Interval history: 75-year-old male who was on a cruise and ended up falling in the shower early on. After the cruise he ended up falling again and having seizure activity. Was taken to [facility] and found to have bilateral proximal humerus fractures with posterior dislocation. He was started on AEDs and neurology consult was obtained. He was transferred to [facility] on 10/18 and underwent a right total shoulder arthroplasty and a left ORIF. Patient was discharged from the outside hospital and after a few days of waiting for insurance approval was admitted for acute inpatient rehabilitation. Patient remains on DVT prophylaxis with Lovenox. Per Ortho his right upper extremity may be in a simple sling, left upper extremity is in external rotation sling. Nonweightbearing bilaterally and slight range of motion (pendulums) okay for axillary hygiene only. Patient has a follow-up appointment tomorrow with a local orthopedic surgeon. Bandages have been removed per outside hospital according to the patient. After the patient was medically stabilized they were transferred for further rehabilitation. All available medical records have been reviewed. Plan of care was discussed with patient. Interval History: Patient is participating in therapy and making reasonable progress. Taking rest breaks as needed. -BM. Denies palpitations, dyspnea, cough, N/V, weakness. Bilateral proximal humerus fractures: Status post left ORIF and right TSA. Was able to consult in-house orthopedics, appreciate Dr. Carrero's assistance. Discussed his findings yesterday, no issues with prior surgeries noted. Patient is not having any acute issues currently. Remains on DVT prophylaxis while in house, weightbearing and range of motion restrictions, and slings. X-rays reviewed, postop changes noted without any apparent issues in hardware. Right upper extremity in a sling /, elbow elevated when in bed so the patient can see his elbow at all times. Seizures: Continue medications, no seizure activity appreciated or reported. Continue seizure precaution Diabetes: Very well controlled. Continue metformin. We will stop fingerstick glucose checks and sliding scale as patient is well controlled on current regimen. Can perform glucose checks as needed if there are any acute changes Anemia: Last value was 8.8 at outside hospital prior to discharge. On his initial labs with us he was 8.5 and normocytic. Hgb improved to 10.4. Iron slightly low however iron stores are within normal limits, B12 and folate normal. Thrombocytosis: In line with values at outside hospital. Monitor for normalization. Patient remains on aspirin and Lovenox Hypertension: New diagnosis, continue amlodipine 2.5 mg. Blood pressures have been variable but seems to be a function of where the pressure is being taken. We will continue to monitor and adjust medication as needed. Appreciate cardiology assistance Constipation: Medications available both scheduled and as needed. Positive bowel movement yesterday. Continue medications and adjust as needed ADL mobility deficits: Patient is working with therapy and making progress. Continued to provide therapeutic interventions to give the patient skills and comfort with performing ADLs and mobility in a safe manner without putting upper extremities at risk. All records, vitals, labs and medications were reviewed. No other issues per patient, nursing or therapy. Patient discussed during team conference. Making good progress towards discharge. No seizure activity since being on the unit. Patient will discharge home with home health initially and once he is more mobile will be transitioned over to outpatient therapy. Will need to follow-up with Dr. Carrero for orthopedics and neurologist of his choosing. We will look to transition over to [facility] for continued outpatient DVT prophylaxis. Patient's informed me that they have already purchased a bedside commode, tub transfer bench, and transport wheelchair. Spoke with the patient and his for approximately 30 minutes concerning follow-up issues, prognosis, use of slings and therapy after discharge. In total greater than 45 minutes was invested in patient care today with greater than 50% of that time spent counseling and coordinating care. Objective - Exam Narrative Exam: MUSCULOSKELETAL SPECIALTY EXAM CONSTITUTIONAL: Well developed, well nourished, appropriately groomed RESPIRATORY: Clear to auscultation bilaterally, no increased work of breathing CARDIOVASCULAR: Regular Rate/ Rhythm, no swelling, edema or tenderness in BUE or BLE. All extremities warm. GI: + bowel sounds, soft, NTTP, nondistended. INTEGUMENTARY: Surgical incisions clean dry and intact on bilateral shoulders, bruising noted. Otherwise normal, no lesion, rash, masses or bruising noted in extremities. MUSCULOSKELETAL: BUE and BLE normal without defect, crepitus, subluxation, effusion, arthritic changes or TTP (appropriate TTP to bilateral shoulders). BUE unable to test fully due to restrictions, herpetologist strength intact able to move wrist and elbows BLE 4+/5 good ROM, with normal tone NEURO: CN 2-12 grossly intact. Sensation intact in all extremities. No tremor noted in 4 extremities. POSTURE and GAIT: Sitting posture good. PSYCH: Alert, oriented x3, affect appears normal. Insight appears intact. - Constitutional Vitals: Vital Signs - 12hr 11/02/21 11/02/21 11:53 12:08 Temperature 97.7 F Pulse Rate 69 Blood Pressure 132/63 Blood Pressure 132/63 [Left] - Allied health notes Allied health notes reviewed: nursing, PT, OT FIMS assessment as documented by PT/OT/ST: Locomotion- walk/wheelchair Ambulation Distance 55 - Labs CBC & Chem 7: 11/01/21 18:02 11/01/21 18:02 Labs: Laboratory Results - last 72 hr 10/30/21 10/30/21 11/01/21 10:36 10:36 18:02 WBC 7.9 RBC 3.57 L Hgb 10.4 L Hct 31.9 L MCV 89 MCH 29 MCHC 33 RDW 19.5 H Plt Count 613 H Sodium Potassium Chloride Carbon Dioxide Anion Gap BUN Creatinine Estimated GFR BUN/Creatinine Ratio Glucose Calcium Vitamin B12 > 2000 H Folate > 20.0 11/01/21 18:02 WBC RBC Hgb Hct MCV MCH MCHC RDW Plt Count Sodium 137 Potassium 4.6 Chloride 102.8 Carbon Dioxide 23 Anion Gap 16 BUN 13 Creatinine 0.5 L Estimated GFR > 60 BUN/Creatinine Ratio 26 Glucose 134 H Calcium 9.1 Vitamin B12 Folate Assessment and Plan Bilateral proximal humerus fractures: Continue nonweightbearing, no range of motion at shoulders. Follow-up with surgeon. External rotation sling for left upper extremity, right upper extremity simple sling. Bilateral shoulder x-rays reviewed, appreciate consult with Dr. Carrero. Right upper extremity in simple sling / with elbow elevated on pillow when in bed. DVT prophylaxis currently with Lovenox, will transition the patient over to low-dose Eliquis twice daily. Patient is currently taking aspirin 325 mg however does have thrombocytosis. Discussed choice of Eliquis with patient, , son. Seizures: Continue Depakote and Keppra. Seizure precautions ordered. Patient will need to follow-up with neurology after discharge for further monitoring and adjustment of medication regimen. No driving until cleared by neurology. Diabetes: Continue metformin. Patient very well controlled at home. Have discontinued daily fingerstick glucose checks and sliding scale. May utilize if needed but patient is well controlled and only checks glucose once a week at home Hypertension: Continue monitoring and adjust medications as needed for normotension. Patient had difficulty on amlodipine 5 mg at outside hospital, per conversation with his son (who is a printing services coordinator) he would prefer to try 2.5 mg currently and monitor. Have discussed concerns with nursing on taking blood pressure in the same area on his leg. Asked patient to remind staff to take it at the same area each time if he notices they are taking it in a different area. Appreciate cardiology assistance Anemia: Improving. Iron slightly low but iron stores within normal limits. Monitor. Transfuse if hemoglobin is less than 7 Thrombocytosis: Patient remains on aspirin 325 mg daily. Values seem in line with labs at outside hospital previously. We will continue to monitor for normalization Hypothyroidism: Continue levothyroxine. ADL dysfunction: OT will work on improving ability to perform ADLs (including assistive devices) to increase independence and decrease caregiver burden and improve functional transfers and mobility training. Difficulty walking: PT will work on gait training and proper use of assistive devices and advance as appropriate to use of stairs and outside ambulation on uneven surfaces. Unsteadiness on feet: PT will work on improving static and dynamic sitting and standing balance as well as proper use of assistive devices to decrease risk of falls. Abnormality of gait: PT will work to improve safety and efficiency of gait through neuromotor training and gait training along with instruction on proper use of assistive devices. Muscle weakness: PT & OT will work on strengthening exercises to improve functional strength including mixture of closed and open kinetic chain exercises. Debility: PT & OT will work on improving overall functional status to improve participation with ADLs, mobility and social involvement. Fatigue: PT & OT will work on improving endurance through aerobic exercises and therapeutic activity while monitoring patients tolerance for activity and vital signs as needed. DVT ppx: Lovenox, will transition to Eliquis tomorrow Pain: Continue physical modalities in therapy and pain medications as needed to achieve functional pain control. Sleep: Monitor and address as needed. Bowel: Monitor and address as needed. Medications scheduled and as needed Appetite: Monitor and address as needed. Discharge planning: Pending therapy progress and care plan meeting. Will continue discussion with therapy team, SW, patient and family. Restrictions/ Precautions: Falls, seizure WB status: FWB Functional Hx: ADLs: Independent Cognition: Independent Mobility: No AD Barriers to Discharge: Decreased mobility and ability to perform self care, balance deficits, weakness Estimated Length of Stay: 710 days Discharge Destination: Home with family
[2021-11-02] MEDS: metFORMIN 500 MG TAB PO SCH (17:44)
[2021-11-02] MEDS: GABAPENTIN 300 MG CAP PO SCH ×2 (17:44→23:02)
[2021-11-02] MEDS: POLYETHYLENE GLYCOL 3350 17 GM POWDER PO PRN (20:56)
[2021-11-02] MEDS: oxyCODONE 5 MG TAB PO PRN (20:57)
[2021-11-02] MEDS: DIVALPROEX ER 250 MG TAB PO SCH (21:27)
[2021-11-03] MEDS: LEVOTHYROXINE 50 MCG TAB PO SCH (06:25)
--- NOTE | 2021-11-03 07:55 | Progress Note ---
Subjective Date of service: 11/03/21 Principal diagnosis: Fall with bilateral proximal humerus fractures Interval history: 75-year-old male who was on a cruise and ended up falling in the shower early on. After the cruise he ended up falling again and having seizure activity. Was taken to [facility] and found to have bilateral proximal humerus fractures with posterior dislocation. He was started on AEDs and neurology consult was obtained. He was transferred to [facility] on 10/18 and underwent a right total shoulder arthroplasty and a left ORIF. Patient was discharged from the outside hospital and after a few days of waiting for insurance approval was admitted for acute inpatient rehabilitation. Patient remains on DVT prophylaxis with Lovenox. Per Ortho his right upper extremity may be in a simple sling, left upper extremity is in external rotation sling. Nonweightbearing bilaterally and slight range of motion (pendulums) okay for axillary hygiene only. Patient has a follow-up appointment tomorrow with a local orthopedic surgeon. Bandages have been removed per outside hospital according to the patient. After the patient was medically stabilized they were transferred for further rehabilitation. All available medical records have been reviewed. Plan of care was discussed with patient. Interval History: Patient is participating in therapy and making reasonable progress. Taking rest breaks as needed. +BM. Denies palpitations, dyspnea, cough, N/V, weakness. Bilateral proximal humerus fractures: Status post left ORIF and right TSA. Was able to consult in-house orthopedics, appreciate Dr. Carrero's assistance. Discussed his findings yesterday, no issues with prior surgeries noted. Patient is not having any acute issues currently. Remains on DVT prophylaxis while in house, weightbearing and range of motion restrictions, and slings. X-rays reviewed, postop changes noted without any apparent issues in hardware. Right upper extremity in a sling /, elbow elevated when in bed so the patient can see his elbow at all times. Seizures: Continue medications, no seizure activity appreciated or reported. Continue seizure precaution Diabetes: Very well controlled. Continue metformin. We will stop fingerstick glucose checks and sliding scale as patient is well controlled on current regimen. Can perform glucose checks as needed if there are any acute changes Anemia: Last value was 8.8 at outside hospital prior to discharge. On his initial labs with us he was 8.5 and normocytic. Hgb improved to 10.4. Iron slightly low however iron stores are within normal limits, B12 and folate normal. Thrombocytosis: In line with values at outside hospital. Monitor for normalization. Patient remains on aspirin and Lovenox Hypertension: New diagnosis, continue amlodipine 2.5 mg. Blood pressures have been variable but seems to be a function of where the pressure is being taken. We will continue to monitor and adjust medication as needed. Appreciate cardiology assistance Constipation: Medications available both scheduled and as needed. Positive bowel movement yesterday. Continue medications and adjust as needed ADL mobility deficits: Patient is working with therapy and making progress. Continued to provide therapeutic interventions to give the patient skills and comfort with performing ADLs and mobility in a safe manner without putting upper extremities at risk. All records, vitals, labs and medications were reviewed. No other issues per patient, nursing or therapy. Objective - Exam Narrative Exam: MUSCULOSKELETAL SPECIALTY EXAM CONSTITUTIONAL: Well developed, well nourished, appropriately groomed RESPIRATORY: Clear to auscultation bilaterally, no increased work of breathing CARDIOVASCULAR: Regular Rate/ Rhythm, no swelling, edema or tenderness in BUE or BLE. All extremities warm. GI: + bowel sounds, soft, NTTP, nondistended. INTEGUMENTARY: Surgical incisions clean dry and intact on bilateral shoulders, bruising noted. Otherwise normal, no lesion, rash, masses or bruising noted in extremities. MUSCULOSKELETAL: BUE and BLE normal without defect, crepitus, subluxation, effusion, arthritic changes or TTP (appropriate TTP to bilateral shoulders). BUE unable to test fully due to restrictions, sociology faculty member strength intact able to move wrist and elbows BLE 4+/5 good ROM, with normal tone NEURO: CN 2-12 grossly intact. Sensation intact in all extremities. No tremor noted in 4 extremities. POSTURE and GAIT: Sitting posture good. Gait improved PSYCH: Alert, oriented x3, affect appears normal. Insight appears intact. - Constitutional Vitals: Vital Signs - 12hr 11/02/21 11/02/21 20:00 21:02 Temperature 97.8 F Pulse Rate 72 Respiratory 18 Rate Blood Pressure 153/69 O2 Sat by Pulse 99 99 Oximetry - Allied health notes Allied health notes reviewed: nursing, PT, OT FIMS assessment as documented by PT/OT/ST: Locomotion- walk/wheelchair Ambulation Distance 55 - Labs CBC & Chem 7: 11/01/21 18:02 11/01/21 18:02 Labs: Laboratory Results - last 72 hr 11/01/21 11/01/21 18:02 18:02 WBC 7.9 RBC 3.57 L Hgb 10.4 L Hct 31.9 L MCV 89 MCH 29 MCHC 33 RDW 19.5 H Plt Count 613 H Sodium 137 Potassium 4.6 Chloride 102.8 Carbon Dioxide 23 Anion Gap 16 BUN 13 Creatinine 0.5 L Estimated GFR > 60 BUN/Creatinine Ratio 26 Glucose 134 H Calcium 9.1 Assessment and Plan Bilateral proximal humerus fractures: Continue nonweightbearing, no range of motion at shoulders. Follow-up with surgeon. External rotation sling for left upper extremity, right upper extremity simple sling. Bilateral shoulder x-rays reviewed, appreciate consult with Dr. Carrero. Right upper extremity in simple sling 24/10 with elbow elevated on pillow when in bed. DVT prophylaxis currently with Lovenox, will transition the patient over to low-dose Eliquis twice daily. Patient is currently taking aspirin 325 mg however does have thrombocytosis. Discussed choice of Eliquis with patient, , son. Seizures: Continue Depakote and Keppra. Seizure precautions ordered. Patient will need to follow-up with neurology after discharge for further monitoring and adjustment of medication regimen. No driving until cleared by neurology. Diabetes: Continue metformin. Patient very well controlled at home. Have discontinued daily fingerstick glucose checks and sliding scale. May utilize if needed but patient is well controlled and only checks glucose once a week at home Hypertension: Continue monitoring and adjust medications as needed for normot ension. Patient had difficulty on amlodipine 5 mg at outside hospital, per conversation with his son (who is a data entry analyst) he would prefer to try 2.5 mg currently and monitor. Have discussed concerns with nursing on taking blood pressure in the same area on his leg. Asked patient to remind staff to take it at the same area each time if he notices they are taking it in a different area. Appreciate cardiology assistance Anemia: Improving. Iron slightly low but iron stores within normal limits. Monitor. Transfuse if hemoglobin is less than 7 Thrombocytosis: Patient remains on aspirin 325 mg daily. Values seem in line with labs at outside hospital previously. We will continue to monitor for normalization Hypothyroidism: Continue levothyroxine. ADL dysfunction: OT will work on improving ability to perform ADLs (including assistive devices) to increase independence and decrease caregiver burden and improve functional transfers and mobility training. Difficulty walking: PT will work on gait training and proper use of assistive devices and advance as appropriate to use of stairs and outside ambulation on uneven surfaces. Unsteadiness on feet: PT will work on improving static and dynamic sitting and standing balance as well as proper use of assistive devices to decrease risk of falls. Abnormality of gait: PT will work to improve safety and efficiency of gait through neuromotor training and gait training along with instruction on proper use of assistive devices. Muscle weakness: PT & OT will work on strengthening exercises to improve functional strength including mixture of closed and open kinetic chain exercises. Debility: PT & OT will work on improving overall functional status to improve participation with ADLs, mobility and social involvement. Fatigue: PT & OT will work on improving endurance through aerobic exercises and therapeutic activity while monitoring patients tolerance for activity and vital signs as needed. DVT ppx: Eliquis 2.5mg twice daily Pain: Continue physical modalities in therapy and pain medications as needed to achieve functional pain control. Sleep: Monitor and address as needed. Bowel: Monitor and address as needed. Medications scheduled and as needed Appetite: Monitor and address as needed. Discharge planning: Pending therapy progress and care plan meeting. Will continue discussion with therapy team, SW, patient and family. Restrictions/ Precautions: Falls, seizure WB status: FWB Functional Hx: ADLs: Independent Cognition: Independent Mobility: No AD Barriers to Discharge: Decreased mobility and ability to perform self care, balance deficits, weakness Estimated Length of Stay: 710 days Discharge Destination: Home with family
[2021-11-03] MEDS ORDERED: APIXABAN 2.5 MG TAB PO SCH (10:00)
[2021-11-03] MEDS: ASPIRIN EC 325 MG TAB PO SCH (11:45)
[2021-11-03] MEDS: IBUPROFEN 200 MG TAB PO PRN (11:49)
[2021-11-03] MEDS: CETIRIZINE 10 MG TAB PO SCH (12:30)
[2021-11-03] MEDS: DIVALPROEX ER 250 MG TAB PO SCH (12:30)
[2021-11-03] MEDS: amLODIPine 5 MG TAB PO SCH (12:30)
[2021-11-03] MEDS: levETIRAcetam 500 MG TAB PO SCH (12:30)
[2021-11-03] MEDS: PANTOPRAZOLE 20 MG TAB PO SCH (12:30)
[2021-11-03 13:43] LABS: Blood Urea Nitrogen 12 mg/dL (9-20); Hemolysis Index 14
[2021-11-03 13:54] LABS: BUN/Creatinine Ratio 20
[2021-11-03 16:26] LABS: Hematocrit 28.9 % (35.5-45.6); Hemoglobin 9.3 gm/dl (11.8-15.2); Mean Corpuscular HGB Conc 32 % (32-34); Mean Corpuscular Volume 89 fl (84-94); Platelet Count 417 K/mm3 (140-440); Red Blood Count 3.26 M/mm3 (3.65-5.03); Red Cell Distribution Width 18.9 % (13.2-15.2)
--- NOTE | 2021-11-03 16:35 | Discharge Summary ---
Providers - Providers Date of Admission: 10/27/21 16:16 Date of discharge: 11/03/21 Attending physician: ARGELIA MCCABE III, MD 10/27/21 13:06 Occupational Therapy Evaluate and Treat [CONS] Routine Comment: Reason For Exam: ADL dysfunction Physical Therapy Evaluation and Treat [CONS] Routine Comment: Reason For Exam: Mobility Dysfunction 10/27/21 13:37 Consult to Case Management [CONS] Routine Services Needed at Discharge: Home Health Services Notified:: case specialist Consult to Dietitian/Nutrition [CONS] Routine Physician Instructions: Reason For Exam: Reason for Consult: Diet education 10/29/21 11:01 Consult to Physician [CONS] Routine Comment: Thanks Consulting Provider: CHHAYA CARRERO Physician Instructions: Follow up post op in [place] Reason For Exam: B/L Shoulder srgy f/u 10/29/21 11:19 Consult to Physician [CONS] Routine Comment: Consulting Provider: CAM JARRETT Physician Instructions: Reason For Exam: Hypertension Primary care physician: JASON HUNTER Hospitalization Reason for admission: Fall with bilateral proximal humerus fractures Condition: Good Hospital course: 75-year-old male who was on a cruise and ended up falling in the shower early on. After the cruise he ended up falling again and having seizure activity. Was taken to [facility] and found to have bilateral proximal humerus fractures with posterior dislocation. He was started on AEDs and neurology consult was obtained. He was transferred to [facility] on 10/18 and underwent a right total shoulder arthroplasty and a left ORIF. Patient was discharged from the outside hospital and after a few days of waiting for insurance approval was admitted for acute inpatient rehabilitation. Patient remains on DVT prophylaxis with Lovenox. Per Ortho his right upper extremity may be in a simple sling, left upper extremity is in external rotation sling. Nonweightbearing bilaterally and slight range of motion (pendulums) okay for axillary hygiene only. Patient has a follow-up appointment tomorrow with a local orthopedic surgeon. Bandages have been removed per outside hospital according to the patient. After the patient was medically stabilized they were transferred for further rehabilitation. All available medical records have been reviewed. Plan of care was discussed with patient. Bilateral proximal humerus fractures: Status post left ORIF and right TSA. Was able to consult in-house orthopedics, appreciate Dr. Carrero's assistance. Discussed his findings yesterday, no issues with prior surgeries noted. Patient is not having any acute issues currently. Remains on DVT prophylaxis while in house, weightbearing and range of motion restrictions, and slings. X-rays reviewed, postop changes noted without any apparent issues in hardware. Right upper extremity in a sling 24/10, elbow elevated when in bed so the patient can see his elbow at all times. Seizures: Continue medications, no seizure activity appreciated or reported. Continue seizure precaution Diabetes: Very well controlled. Continue metformin. We will stop fingerstick glucose checks and sliding scale as patient is well controlled on current regimen. Can perform glucose checks as needed if there are any acute changes Anemia: Last value was 8.8 at outside hospital prior to discharge. On his initial labs with us he was 8.5 and normocytic. Hgb improved to 10.4. Iron slightly low however iron stores are within normal limits, B12 and folate normal. Thrombocytosis: In line with values at outside hospital. Monitor for normalization. Transitioned to eliquis for DVT prophylaxis. Hypertension: New diagnosis, continue amlodipine 2.5 mg. Blood pressures have been variable but seems to be a function of where the pressure is being taken. We will continue to monitor and adjust medication as needed. Appreciate cardiology assistance Constipation: Medications available both scheduled and as needed. Positive bowel movement yesterday. Continue medications and adjust as needed ADL mobility deficits: Patient is working with therapy and making progress. Continued to provide therapeutic interventions to give the patient skills and comfort with performing ADLs and mobility in a safe manner without putting upper extremities at risk. Patient was scheduled for discharge on Monday to enable a safe discharge. Currently watching BP and transitioned to eliquis today. Patient was seen this AM for a normal progress note. Unfortunately, his insurance company [employer] denied further services. In a letter sent to us on 11/03/2021 [employer] stated his last covered day would be 11/01/2021. I called to appeal the denial via a peer to peer ( as stated in the letter) but in the 90 minutes I spent on the phone with [employer] - a medicare advantage plan - I was hung up on 3 times and repeatedly transferred from one department to another without ever being able to speak with a physician. The last disconnection occurred while I was awaiting to speak to a hot dip plating supervisor and sent me to a survey about the quality of my experience. I spoke with the patient's son - who is a shot man. I feel that we can provide for a safe discharge, although not optimal as was being planned. Disposition: HOME HEALTH CARE SERVICE Final Discharge Diagnosis (Prints w/discharge instructions): Bilateral proximal humerus fractures, Seizures, HTN, DM, Anemia, Thrombocytosis, ADL and Mobility deficits Time spent for discharge: 2 hrs Core Measure Documentation - Palliative Care Palliative Care/ Comfort Measures: Not Applicable - Core Measures Any of the following diagnoses?: none Exam - Physical Exam Narrative exam: MUSCULOSKELETAL SPECIALTY EXAM CONSTITUTIONAL: Well developed, well nourished, appropriately groomed RESPIRATORY: Clear to auscultation bilaterally, no increased work of breathing CARDIOVASCULAR: Regular Rate/ Rhythm, no swelling, edema or tenderness in BUE or BLE. All extremities warm. GI: + bowel sounds, soft, NTTP, nondistended. INTEGUMENTARY: Surgical incisions clean dry and intact on bilateral shoulders, bruising noted. Otherwise normal, no lesion, rash, masses or bruising noted in extremities. MUSCULOSKELETAL: BUE and BLE normal without defect, crepitus, subluxation, effusion, arthritic changes or TTP (appropriate TTP to bilateral shoulders). BUE unable to test fully due to restrictions, senior strategy manager strength intact able to move wrist and elbows BLE 4+/5 good ROM, with normal tone NEURO: CN 2-12 grossly intact. Sensation intact in all extremities. No tremor noted in 4 extremities. POSTURE and GAIT: Sitting posture good. Gait improved PSYCH: Alert, oriented x3, affect appears normal. Insight appears intact. - Constitutional Vitals: Temp Pulse Resp BP Pulse Ox 98.1 F 54 L 16 119/52 97 11/03/21 14:51 11/03/21 14:51 11/03/21 11:49 11/03/21 14:51 11/03/21 10:47 Plan Activity: no driving until cleared by PCP, up only with assistance, fall precautions, other (-Left upper extremity is nonweightbearing. Sling for comfort. Begin elbow, wrist and hand active range of motion. Begin pendulum exercises of the left shoulder.) Weight Bearing Status: Non-Weight Bearing (BUE) Diet: diabetic Wound: open to air Special Instructions: record daily BP diary, record blood sugar diary, physical therapy, occupational therapy, home health RN Durable Medical Equipment Needed Upon Discharge: other (Tub transfer bench and raised 3in1 - already purchased) Care Plan Goals: Precautions / Restrictions per Ortho - Dr Carrero -Left upper extremity is nonweightbearing. Sling for comfort. Begin elbow, wrist and hand active range of motion. Begin pendulum exercises of the left shoulder. -Right upper extremity is nonweightbearing. Sling on at all times except for when doiong therapy. Begin elbow, wrist and hand active range of motion. See below for further RUE precautions. Right shoulder precautions: Avoidance of shoulder extension past neutral and the combination of shoulder adduction and internal rotation should be avoided for 12 weeks postoperatively to reduce risk of dislocation. As such, tucking in a shirt or performing bathroom / persona hygiene with the operative arm is an especially dangerous activity particularly in the immediate yamilet-operative phase. No shoulder motion behind back. (NO combined shoulder adduction, internal rotation, and extension.) No glenohumeral (GH) extension beyond neutral. Sling is worn for 3-4 weeks postoperatively and only removed for exercise and bathing once able. While lying supine, the distal humerus / elbow should be supported by a pillow or towel roll to avoid shoulder extension. Patients should be advised to always be able to visualize their elbow while lying supine. No shoulder AROM. No lifting of objects with operative extremity. No supporting of body weight with involved extremity. Keep incision clean and dry (no soaking/wetting for 2 weeks); No whirlpool, Jacuzzi, pool, ocean/eastman wading for 6 weeks. Plan of Treatment: Follow up with PCP for further monitoring of HTN, DM, Anemia, Thrombocytosis. Seek out a neurologist for monitoring of seizure activity and timing to trial off of AEDs - Keppra and Depakote Based on BUE fractures and immobility, have transitioned patient to Eliquis 2.5mg BID x 30 days. Monitor for any signs of bleeding and avoid falls. Pain medications will be sent on a separate script due to system issues with being off site at time of discharge. [place] PDMP has been reviewed. Oxycodone 5mg 1 po BID prn pain disp 30 Latest Labs on 11/03/2021 WBC 7.2 Hgb 9.3 Hct 28.9 Plt 417 Na 136 K 4.3 Cl 101.3 CO2 21 BUN 12 Creat 0.6 GLU 130 Ca 9.0 Follow up with: JASON HUNTER MD [Primary Care Provider] - 7 Days CHHAYA CARRERO DO [Staff Physician] - 7 Days Prescriptions: amLODIPine 2.5 mg PO QDAY #30 tablet Docusate Sodium [Colace CAP] 100 mg PO DAILY #30 capsule Divalproex ER [Depakote ER] 500 mg PO BID #120 tablet Apixaban [Eliquis] 2.5 mg PO Q12HR #60 tablet Gabapentin 900 mg PO QPM #90 capsule metFORMIN [Glucophage] 500 mg PO QPM #30 tablet levETIRAcetam [Keppra TAB] 1,000 mg PO BID #120 tablet Pantoprazole [Protonix TAB] 20 mg PO QDAC #30 tablet. Levothyroxine [Synthroid] 50 mcg PO DAILY@0600 #30 tablet
[2021-11-03 16:53] VITALS: BP 142/52
[2021-11-03] MEDS: DOCUSATE SODIUM 100 MG CAP PO SCH (18:30)
== END 2021-11-03 14:00 | disposition home or self-care (01) | DRG 563 ==
LOC: 3A 16:35 → UNDOADMIN 16:35 → 4A 10-27 16:16
PROVIDERS: ADMIT Physical Medicine & Rehabilitation; ATTEND Physical Medicine & Rehabilitation
DX: S42.202A Unspecified fracture of upper end of left humerus, initial encounter for closed fracture (principal); S42.201A Unspecified fracture of upper end of right humerus, initial encounter for closed fracture; E11.9 Type 2 diabetes mellitus without complications; E03.9 Hypothyroidism, unspecified; Z79.82 Long term (current) use of aspirin; Z79.84 Long term (current) use of oral hypoglycemic drugs; W18.39XA Other fall on same level, initial encounter; Y93.89 Activity, other specified; Y92.89 Other specified places as the place of occurrence of the external cause; Y99.8 Other external cause status; R56.9 Unspecified convulsions; R26.81 Unsteadiness on feet; R53.81 Other malaise; D64.9 Anemia, unspecified; D75.839 Thrombocytosis, unspecified; K59.00 Constipation, unspecified; Z85.46 Personal history of malignant neoplasm of prostate
CPT/HCPCS: 36415; 80048; 80053; 82607; 82728; 82747; 82962; 83550; 84132; 85007; 85025; 85027; G0378; J1650